=== PATIENT | male | born 1970 | race Caucasian/White ===

== ENCOUNTER 2017-11-30 02:32 | Inpatient (IN) | payer SELFPAY ==
[2017-11-30] VITALS (16 sets, daily range): BP systolic 109–143; BP diastolic 57–76; PULSE 79–97; RESP 20–28; TEMP 98.6–99.7; O2SAT 95–100
[~2017-11-30] VITALS: Ht 172.7 cm; Wt 73.7 kg
[~2017-11-30 02:32] MED LIST: CEPH500C3 PO; CIPR500T2 PO; DOXY100T PO; PROM6.257 PO
[2017-11-30] MEDS: SODIUM CHLOR 0.9% 1000 ML INJ 1,000 ML IV SCH ×2 (03:34→15:29)
--- NOTE | 2017-11-30 03:42 | HHI.HP ---
HPI Service Critical Care Medicine Primary Care Physician Unknown Admission Diagnosis Acute respiratory failure Right intraparenchymal/intraventricular hemorrhage Diagnosis: (1) Acute respiratory failure Diagnosis: Principal (2) Intraparenchymal hemorrhage of brain Diagnosis: Principal (3) Hypertensive emergency Diagnosis: Principal (4) Amphetamine abuse Diagnosis: Principal (5) Leukocytosis Diagnosis: Secondary Chief Complaint: Patient transferred from [facility] and this morning with right thalamic/midbrain and vicky intraparenchymal hemorrhage with intraventricular extension Travel History International Travel<30 Days: No Contact w/Intl Traveler <30 Da: No Traveled to Known Affected Are: No Sepsis Criteria SIRS Criteria (2 or more): WBC > 66529, < 4000 or > 10% bands History of Present Illness This is a 47-year-old male. Date of admission 11/30/2017. Past medical history includes hypertension methamphetamine use. Patient was in his normal himself when he took a shower today was found by his girlfriend unresponsive. He has been using methamphetamine for the past 6 months. Unknown reasons. Urine tox screen positive. Patient presented to [facility] in [place] as a stroke alert. Due to altered mental status patient was intubated using 20 g etomidate 100 mg succinylcholine. Received [address] brain revealed intra-pedicle hemorrhage 4.7 x 2.2 cm in the right thalamus, midbrain and vicky with intraventricular extension to the third, fourth and lateral ventricles. Patient received mannitol at the facility. Blood pressure was elevated and was treated with labetalol and propofol drip. Neurosurgery was contacted our facility wished for us to accept consultation. CT brain currently pending. 3% saline, mannitol and levetiracetam involvement provided at this facility. Neurological patient's pupils are 9 mm left 8 mm on the right sluggish. Patient extends right upper extremity, flexes left upper extremity, upward toes/ withdraws bilateral lower extremities. Positive gag and cough. Positive corneal reflex. Review of Systems ROS Limitations: Intubated Past Family Social History Allergies: Coded Allergies: No Known Allergies (Unverified Allergy, Unknown, 11/30/17) Past Medical History Methamphetamine use Hypertension Past Surgical History Appendectomy Reported Medications Unknown Active Ordered Medications Reviewed in EMR Family History Unknown Social History Social alcohol. Unknown tobacco. Positive for amphetamine use. Physical Exam Vital Signs Vital Signs Date Time Temp Pulse Resp B/P (MAP) Pulse Ox O2 Delivery O2 Flow Rate FiO2 3/6/18 02:50 100 100 Physical Exam GENERAL: 47-year-old male orotracheally intubated SKIN: Warm and dry. No rash HEAD: Atraumatic. Normocephalic. EYES: Pupils 9 mm, right pupil 8 mm. Sluggish. No scleral icterus. No injection or drainage. ENT: No nasal bleeding or discharge. Mucous membranes pink and moist. NECK: Trachea midline. No JVD. CARDIOVASCULAR: Regular rate and rhythm. S1, S2. No S4. No murmur RESPIRATORY: No accessory muscle use. Clear to auscultation. Breath sounds equal bilaterally. GASTROINTESTINAL: Abdomen soft, non-tender, nondistended hypoactive bowel sounds are appreciated MUSCULOSKELETAL: Extremities without significant peripheral edema. No obvious deformities. NEUROLOGICAL: Positive gag and cough. Positive corneal reflex. Flexes left upper extremity. Extends right upper extremity. Upward toes/withdraws bilateral lower extremities. Imaging CT brain pending Septic Shock Reassessment Septic shock perfusion: reassessment completed Caprini VTE Risk Assessment Caprini VTE Risk Assessment: Mod/High Risk (score >= 2) VTE Pharm Contraindication: Active bleeding Caprini Risk Assessment Model Point Value = 1 Point Value = 2 Point Value = 3 Point Value = 5 Age 41-60 Minor surgery BMI > 25 kg/m2 Swollen legs Varicose veins or History of unexplained or recurrent spontaneous Oral contraceptives or hormone replacement Sepsis (< 1 month) Serious lung disease, including pneumonia (< 1 month) Abnormal pulmonary function Acute myocardial infarction Congestive heart failure (< 1 month) History of inflammatory bowel disease Medical patient at bed rest Age 61-74 Arthroscopic surgery Major open surgery (> 45 min) Laparoscopic surgery (> 45 min) Malignancy Confined to bed (> 72 hours) Immobilizing plaster cast Central venous access Age >= 75 History of VTE Family history of VTE Factor V Leiden Prothrombin [id number] Lupus anticoagulant Anticardiolipin antibodies Elevated serum homocysteine Heparin-induced thrombocytopenia Other congenital or acquired thrombophilia Stroke (< 1 month) Elective arthroplasty Hip, pelvis, or leg fracture Acute spinal cord injury (< 1 month) Prophylaxis Regimen Total Risk Factor Score Risk Level Prophylaxis Regimen 0-1 Low Early ambulation 2 Moderate Order ONE of the following: *Sequential Compression Device (SCD) *Heparin 5000 units SQ BID 3-4 Higher Order ONE of the following medications: *Heparin 5000 units SQ TID *Enoxaparin/Lovenox 40 mg SQ daily (WT < 150 kg, CrCl > 30 mL/min) *Enoxaparin/Lovenox 30 mg SQ daily (WT < 150 kg, CrCl > 10-29 mL/min) *Enoxaparin/Lovenox 30 mg SQ BID (WT < 150 kg, CrCl > 30 mL/min) AND/OR *Sequential Compression Device (SCD) 5 or more Highest Order ONE of the following medications: *Heparin 5000 units SQ TID (Preferred with Epidurals) *Enoxaparin/Lovenox 40 mg SQ daily (WT < 150 kg, CrCl > 30 mL/min) *Enoxaparin/Lovenox 30 mg SQ daily (WT < 150 kg, CrCl > 10-29 mL/min) *Enoxaparin/Lovenox 30 mg SQ BID (WT < 150 kg, CrCl > 30 mL/min) AND *Sequential Compression Device (SCD) Assessment and Plan Assessment and Plan Neuro/Psych: Right thalamic/midbrain /vicky intraparenchymal hemorrhage 4.7 x 3.3 cm with intraventricular extension to the third, fourth and lateral ventricles. Methamphetamine use Propofol/fentanyl drips for sedation/analgesia while intubated Goal of RA SS -[address] brain at [facility] pneumocephaly which revealed right thalamic hematoma/intraparenchymal hemorrhage 4.7 x 3 cm involving the midbrain and vicky with intraventricular extension. Received 20 mg labetalol and started on nicardipine drip Neurosurgery/Dr. Pathak accepted and asked for size roller operator to admit CT brain without contrast 11/30 pending Currently on 3% saline at 20 cc an hour. Goal 150-155 Mannitol 12.5 g IV every 8 hours. Goal osm ~310 EEG ordered Levetiracetam 500 mg IV twice daily seizure prophylaxis Seizure precautions Repeat UDS ordered. Positive for amphetamines at [facility] CV: Hypertensive emergency Currently on as needed labetalol/nicardipine drip to maintain systolic blood pressure less than 140 EKG and cardiac markers currently pending 2D echocardiogram ordered Resp: Acute respiratory failure [facility] 16/500/10/01/50 Ventilator bundle Albuterol/ipratropium aerosols every 6 hours with albuterol aerosols every 2 hours. Dyspnea Spontaneous breathing trials daily Follow-up ABG/chest x-ray End-tidal CO2 between 35 and 40 GI: Elevated transaminases NGT to LIWS Pantoprazole for GI prophylaxis Docusate sodium/senna 1 tablet twice daily for bowel regimen : Stuart catheter for accurate I's and O's in a critically ill patient Endo: Sliding scale insulin Accu-Cheks to maintain euglycemia Renal: Creatinine currently within normal limits Monitor urine output Accurate I's and O's Heme: CBC and coags was normal at [facility]. Recheck at this facility ID: Monitor for infection MSK: PT evaluate and treat FEN: Replace electrolytes as clinically indicated Access -Utilize left IJ CVL day #1 placed 3/6 Prophylaxis -GI pantoprazole -DVT SCD/holding pharmacological prophylaxis in light of acute intraparenchymal hemorrhage Critical Care: The total critical care time was 35 minutes. Time to perform other separately billable procedures was not included in the critical care time. Code Status Full code Discussed Condition With Patient. Care plan discussed and all questions answered. Problem Qualifiers (1) Acute respiratory failure: Qualified Codes: J96.00 - Acute respiratory failure, unspecified whether with hypoxia or hypercapnia (2) Leukocytosis: Qualified Codes: D72.829 - Elevated white blood cell count, unspecified Nathan Lang MD Nov 30, 2017 03:42
--- NOTE | 2017-11-30 03:43 | PD.PROCEDR ---
Central Line Procedure REASON FOR PROCEDURE Central venous access PROCEDURE PERFORMED Central line placement: Left IJ CVL CONSENT Informed consent for procedure was obtained. The risks and benefits of the procedure were discussed to include but limited to bleeding, clot formation, infection, and even . ANESTHESIA Local injection of 1% Lidocaine DESCRIPTION OF THE PROCEDURE The patient was placed in supine, mild Trendelenburg position. The area was exposed and cleansed with ChloraPrep, times two. Large sterile drape was used to cover the patient, with the site exposed, under sterile conditions including cap, face mask, sterile gown, and sterile gloves. On single attempt, the introducer needle was inserted with negative pressure in syringe and venous flash was obtained. The guide wire was then advanced without any restriction and the needle was removed. The dilator was used without any complications. Using Seldinger technique the antibiotic coated triple lumen catheter was advanced over the guide wire to a depth of 20 centimeters. The guide wire was removed. All ports were aspirated with dark venous blood return and flushed easily with sterile saline. All ports were capped. Antibiotic disc was placed around central line at puncture site. The central line was secured to the skin with two interrupted 2.0 silk sutures. The area was bandaged with sterile see- through central line bandage. RADIOLOGICAL DATA Ultrasound guidance was used to locate left internal jugular vein. Doppler/ color flow was used to confirm venous flow. COMPLICATIONS: No apparent complications ESTIMATED BLOOD LOSS: Less than 1 cc. Nathan Lang MD Nov 30, 2017 03:43
[2017-11-30] MEDS ORDERED: MAGNESIUM HYDROXIDE SUSP 30 ML CUP PO PRN (03:45)
[2017-11-30] MEDS ORDERED: PROPOFOL 1000 MG/100 ML INJ 100 ML IV PRN (03:45)
[2017-11-30] MEDS ORDERED: SODIUM CHLORIDE 0.9% FLUSH 10 ML FLUSH IV FLUSH PRN ×2 (03:45)
[2017-11-30] MEDS ORDERED: levETIRAcetam INJ 500 MG in SODIUM CHLORIDE 0.9% INJ 100 ML IV ONE (03:45)
[2017-11-30] MEDS ORDERED: GLUCAGON 1 MG/ML VIAL OTHER PRN (03:45)
[2017-11-30] MEDS ORDERED: BISACODYL 10 MG SUPP RECTAL PRN (03:45)
[2017-11-30] MEDS ORDERED: SENNOSIDES 8.6 MG TAB PO PRN (03:45)
[2017-11-30] MEDS ORDERED: DEXTROSE 50% IN WATER 50 ML VIAL(D50) IV PUSH PRN (03:45)
[2017-11-30] MEDS ORDERED: RESP: ALBUTEROL 2.5 MG/3 ML NEB (PRN) INH (03:45)
[2017-11-30] MEDS ORDERED: ONDANSETRON HCL 4 MG/2 ML VIAL IV PUSH PRN (03:45)
[2017-11-30] MEDS ORDERED: MISCELLANEOUS NURSING INFORMATION XX SCH (03:45)
[2017-11-30] MEDS ORDERED: LACTULOSE SYRUP 20 GM/30 ML CUP PO PRN (03:45)
[2017-11-30] MEDS ORDERED: CHLORHEXIDINE GLUCONATE 2 % 1 PACK (2 CLOTHS) TOP PRN (03:45)
[2017-11-30] MEDS ORDERED: fentaNYL DRIP 250 ML IV PRN (03:45)
[2017-11-30] MEDS: MANNITOL 12.5 GM/50 ML VIAL IV SCH ×3 (03:45→19:45)
[2017-11-30] MEDS ORDERED: LABETALOL HCL 100 MG/20 ML VIAL IV PUSH PRN (04:00)
[2017-11-30] MEDS: CHLORHEXIDINE GLUCONATE 2 % 1 PACK (2 CLOTHS) TOP SCH (04:00)
[2017-11-30] MEDS ORDERED: CLEVIDIPINE INJ 50 ML IV PRN (04:00)
[2017-11-30] MEDS ORDERED: niCARdipine INJ 25 MG in SODIUM CHLOR 0.9% 250 ML INJ 240 ML IV PRN (04:00)
--- NOTE | 2017-11-30 04:40 | RADRPT ---
EXAM DATE/TIME: 11/30/2017 04:14 [facility] COMPARISON: No previous studies available for comparison. INDICATIONS : Hemorrhage after drug use. RADIATION DOSE: 66.36 CTDIvol (mGy) MEDICAL HISTORY : Non-responsive. SURGICAL HISTORY : Non-responsive. ENCOUNTER: Initial ACUITY: 1 day PAIN SCALE: Non-responsive LOCATION: cranial TECHNIQUE: Multiple contiguous axial images were obtained of the head. Using automated exposure control and adj ustment of the mA and/or kV according to patient size, radiation dose was kept as low as reasonably a chievable to obtain optimal diagnostic quality images. DICOM format image data is available electro nically for review and comparison. FINDINGS: There is acute hemorrhage in the right basal ganglia measuring approximately 2.9 x 2.8 cm. There is s urrounding vasogenic edema and mass effect. The acute blood products extend into the lateral ventricl es bilaterally. There is also acute hemorrhage within the brainstem in the region of the vicky and mid brain. Acute blood products also extend into the fourth ventricle. The ventricles are mildly enlarged . There is approximately 4 mm of [id number] midline shift. The perimesencephalic cisterns are also effaced. The visualized sinuses are clear. No skull fracture is identified. CONCLUSION: There are acute blood products within the right basal ganglia and brainstem with extension of the blo od products into the lateral ventricles and fourth ventricle. These findings result in ventriculomega ly with 4 mm of [id number] midline shift. Isiah Andre MD on November 30, 2017 at 4:34 Board Certified Radiologist. This report was verified electronically.
[2017-11-30] MEDS ORDERED: POTASSIUM CHLORIDE 25 MEQ EFFERVESCENT TAB PO PRN (04:45)
[2017-11-30] MEDS ORDERED: MAGNESIUM OXIDE 400 MG TAB PO PRN (04:45)
[2017-11-30] MEDS ORDERED: POTASSIUM PHOSPHATE INJ 30 MMOL in SODIUM CHLOR 0.9% 250 ML INJ 250 ML IV PRN (04:45)
[2017-11-30] MEDS ORDERED: POTASSIUM CHLOR 20 MEQ PREMIX 100 ML IV PRN ×2 (04:45)
[2017-11-30] MEDS ORDERED: MAGNESIUM SULFATE INJ 4 GM in SODIUM CHLORIDE 0.9% INJ 92 ML IV PRN (04:45)
[2017-11-30] MEDS ORDERED: POTASSIUM CHLOR 40 MEQ PREMIX 100 ML IV PRN ×2 (04:45)
[2017-11-30] MEDS ORDERED: POTASSIUM PHOSPHATE MONOBASIC 500 MG TAB PO PRN (04:45)
[2017-11-30] MEDS ORDERED: MAGNESIUM SULFATE INJ 2 GM in SODIUM CHLORIDE 0.9% INJ 96 ML IV PRN (04:45)
[2017-11-30] MEDS ORDERED: SODIUM PHOSPHATE INJ 30 MMOL in SODIUM CHLOR 0.9% 250 ML INJ 240 ML IV PRN (04:45)
[2017-11-30] MEDS ORDERED: POTASSIUM PHOSPHATE MONOBASIC 500 MG TAB PO/TUBE PRN (04:45)
--- NOTE | 2017-11-30 04:55 | RADRPT ---
EXAM DATE/TIME: 11/30/2017 03:43 [facility] COMPARISON: No previous studies available for comparison. INDICATIONS : Central line placement. MEDICAL HISTORY : Non-responsive. SURGICAL HISTORY : Non-responsive. ENCOUNTER: Initial ACUITY: 1 day PAIN SCORE: Non-responsive. LOCATION: Bilateral chest FINDINGS: Portable AP view of the chest demonstrates a normal-sized cardiac silhouette. Endotracheal tube is pr esent. Distal tip is not well-visualized but appears to be at least 2 cm away from the alessia. Nasoga stric tube courses beyond the GE junction. Left IJ central line distal tip is in the SVC. No effusion , consolidation, or pneumothorax is identified. The bones and soft tissues demonstrate no acute findi ng. CONCLUSION: Left IJ central line distal tip in the SVC. No pneumothorax is visualized. Isiah Andre MD on November 30, 2017 at 4:52 Board Certified Radiologist. This report was verified electronically.
[2017-11-30] MEDS: RESP: ALBUTEROL 2.5 MG/IPRATROPIUM 0.5 MG NEB (SCH) INH ×4 (04:57→20:23)
[2017-11-30] MEDS: 3% SALINE INJ 500 ML IV SCH (05:50)
[2017-11-30] MEDS: INSULIN NovoLIN REGULAR SUPPLEMENTAL SCALE SQ SCH ×3 (06:00→18:00)
[2017-11-30 06:05] LABS: AUTOMATED NEUTROPHIL # 11.2 TH/MM3 (1.8-7.7); BASOPHIL % 0.2 % (0.0-2.0); EOSINOPHIL % 0.1 % (0.0-4.0); HEMATOCRIT 44.1 % (39.0-51.0); HEMOGLOBIN 15.1 GM/DL (13.0-17.0); LYMPH % 9.1 % (9.0-44.0); LYMPHOCYTE # 1.2 TH/MM3 (1.0-4.8); MEAN CELL VOLUME 88.3 FL (80.0-100.0); MEAN CORPUSCULAR HEMOGLOBIN 30.3 PG (27.0-34.0); MEAN CORPUSCULAR HGB CONC 34.3 % (32.0-36.0); MEAN PLATELET VOLUME 9.4 FL (7.0-11.0); MONO % 4.8 % (0.0-8.0); MONOCYTE # 0.6 TH/MM3 (0-0.9); NEUT % 85.8 % (16.0-70.0); PLATELET COUNT 220 TH/MM3 (150-450); RED CELL DISTRIBUTION WIDTH 13.7 % (11.6-17.2)
[2017-11-30 06:06] LABS: INTERNATIONAL NORMALIZED RATIO 1.1 RATIO; PROTHROMBIN TIME - PATIENT 10.7 SEC (9.8-11.6)
[2017-11-30 06:08] LABS: ALBUMIN 4.1 GM/DL (3.4-5.0); AST (GOT) 26 U/L (15-37); BICARBONATE 32.3 MEQ/L (21.0-32.0); BLOOD UREA NITROGEN 22 MG/DL (7-18); CALCIUM 8.5 MG/DL (8.5-10.1); CHLORIDE 99 MEQ/L (98-107); CREATININE 1.82 MG/DL (0.60-1.30); GLOMERULAR FILTRATION RATE 40 ML/MIN (>89); GLUCOSE,RANDOM 173 MG/DL (74-106); MAGNESIUM 2.1 MG/DL (1.5-2.5); SODIUM (NA) 137 MEQ/L (136-145)
[2017-11-30 06:17] LABS: ALKALINE PHOSPHATASE 67 U/L (45-117); ALT (GPT) 19 U/L (12-78); PHOSPHORUS 1.7 MG/DL (2.5-4.9); TOTAL BILIRUBIN ADULT 0.8 MG/DL (0.2-1.0); TROPONIN I 0.03 NG/ML (0.02-0.05)
[2017-11-30 06:21] LABS: ACETAMINOPHEN LESS THAN 2.0 MCG/ML (10.0-30.0)
[2017-11-30] MEDS ORDERED: fentaNYL 2,500 MCG/NS 250 ML IV PRN (07:00)
[2017-11-30] MEDS: niCARdipine 25 MG/NS 250 ML Vial2Bag or IV room IV PRN ×4 (07:15→13:55)
[2017-11-30] MEDS: PROPOFOL 1000 MG/100 ML IV PRN ×3 (07:57→17:41)
[2017-11-30] MEDS: CHLORHEXIDINE 0.12% (ORAL KIT) 15 ML CUP MT SCH ×2 (08:00→20:00)
[2017-11-30] MEDS: levETIRAcetam INJ 500 MG in SODIUM CHLORIDE 0.9% INJ 100 ML IV SCH ×2 (09:00→21:51)
[2017-11-30] MEDS: SODIUM CHLORIDE 0.9% FLUSH 10 ML FLUSH IV FLUSH SCH ×3 (09:00→21:00)
[2017-11-30] MEDS: ARTIFICIAL TEARS OPTH SOLN 15 ML BTL EACH EYE SCH ×3 (09:00→18:00)
[2017-11-30] MEDS: DOCUSATE SODIUM 50 MG/SENNA 8.6 MG TAB PO SCH ×2 (09:00→21:52)
[2017-11-30] MEDS: PANTOPRAZOLE SODIUM 40 MG VIAL IV PUSH SCH (09:00)
[2017-11-30] MEDS: MULTIVITAMIN INJ 10 ML, THIAMINE INJ 100 MG, FOLIC ACID INJ 1 MG in SODIUM CHLORID 0.9%... IV SCH (09:00)
[2017-11-30 14:07] LABS: ALBUMIN 3.7 GM/DL (3.4-5.0); AST (GOT) 28 U/L (15-37); BICARBONATE 30.3 MEQ/L (21.0-32.0); BLOOD UREA NITROGEN 24 MG/DL (7-18); CALCIUM 8.3 MG/DL (8.5-10.1); CHLORIDE 101 MEQ/L (98-107); CREATININE 1.76 MG/DL (0.60-1.30); GLOMERULAR FILTRATION RATE 42 ML/MIN (>89); GLUCOSE,RANDOM 105 MG/DL (74-106); SODIUM (NA) 141 MEQ/L (136-145)
[2017-11-30 14:08] LABS: ALT (GPT) 17 U/L (12-78)
[2017-11-30 14:10] LABS: ALKALINE PHOSPHATASE 58 U/L (45-117); TOTAL BILIRUBIN ADULT 0.6 MG/DL (0.2-1.0); TOTAL PROTEIN 6.9 GM/DL (6.4-8.2)
--- NOTE | 2017-11-30 17:00 | MG ---
cc: Ronnie Monroe MD EEG#: [id number] Diprivan, fentanyl. Right basal ganglion branch stem hemorrhage. Unresponsive. Keppra, Protonix. Diffuse beta rhythms and alpha rhythms are noted which are synchronous and symmetric. I do not see any epileptiform or seizure activity. No major hemisphere asymmetry is noted. Some muscle artifact is seen over the left zoroastrianism leads. Photic stimulation is performed without significant posterior driving. IMPRESSION: Really a generally unremarkable electroencephalogram. I did not see any epileptiform or seizure activity. No major hemisphere asymmetry is noted. Ronnie Norris. MD Fer DJM/TI , 04:37 PM , 04:59 PM
--- NOTE | 2017-11-30 17:38 | ECHRPT ---
Indication: HEART FAILURE CONCLUSIONS The left ventricular systolic function is sslztooj-yh-pphixzy reduced with an estimated ejection fra ction in the range of 35-40%. Moderate concentric left ventricular hypertrophy. Doppler parameters are consistent with a pseudonormal left ventricular filling pattern with concomin ant abnormal relaxation and increased filling pressure (grade 2 diastolic dysfunction). Mild aortic valve regurgitation. There is trace tricuspid valve regurgitation. BP: 149 / 79 HR: 149 Rhythm: Sinus MEASUREMENTS (Male / Female) Normal Values Technical Quality:Fair 2D ECHO LV Diastolic Diameter PLAX 6.0 cm 4.2 - 5.9 / 3.9 - 5.3 cm LV Systolic Diameter PLAX 5.1 cm IVS Diastolic Thickness 1.5 cm 0.6 - 1.0 / 0.6 - 0.9 cm LVPW Diastolic Thickness 1.5 cm 0.6 - 1.0 / 0.6 - 0.9 cm LV Relative Wall Thickness 0.5 LVOT Diameter 2.1 cm Aortic Root Diameter 3.3 cm LA Systolic Diameter LX 2.2 cm 3.0 - 4.0 / 2.7 - 3.8 cm DOPPLER AV Peak Velocity 123.0 cm/s AV Peak Gradient 6.1 mmHg AV Mean Gradient 3.0 mmHg AV Velocity Time Integral 15.0 cm AI Peak Velocity 413.0 cm/s AI Peak Gradient 68.2 mmHg AI Pressure Half Time 645.0 ms LVOT Peak Velocity 102.0 cm/s LVOT Peak Gradient 4.2 mmHg LVOT Velocity Time Integral 13.2 cm AV Area Cont Eq vti 3.0 cm AV Area Cont Eq pk 2.9 cm Mitral E Point Velocity 52.3 cm/s Mitral A Point Velocity 48.9 cm/s Mitral E to A Ratio 1.1 LV E' Lateral Velocity 8.3 cm/s Mitral E to LV E' Lateral Ratio 6.3 LV E' Septal Velocity 4.8 cm/s Mitral E to LV E' Septal Ratio 10.9 TR Peak Velocity 248.0 cm/s TR Peak Gradient 24.6 mmHg Right Atrial Pressure 10.0 mmHg Pulmonary Artery Systolic Pressu 34.6 mmHg Right Ventricular Systolic Press 34.6 mmHg PV Peak Velocity 95.5 cm/s PV Peak Gradient 3.6 mmHg FINDINGS LEFT VENTRICLE Mildly dilated left ventricle Moderate concentric left ventricular hypertrophy. The left ventricular systolic function is fkwivupj-pw-kelhozr reduced with an estimated ejection fra ction in the range of 35-40%. There is global left ventricular dysfunction. Doppler parameters are consistent with a pseudonormal left ventricular filling pattern with concomin ant abnormal relaxation and increased filling pressure (grade 2 diastolic dysfunction). RIGHT VENTRICLE Normal right ventricular size and systolic function. LEFT ATRIUM The left atrial size is mildly dilated. RIGHT ATRIUM The right atrial size is normal. ATRIAL SEPTUM Normal atrial septal thickness without atrial level shunting by limited color doppler interrogation. AORTA The aortic root and proximal ascending aorta are normal in size on limited imaging. MITRAL VALVE Structurally normal mitral valve. No mitral valve stenosis or regurgitation. AORTIC VALVE Grossly normal aortic valve Mild aortic valve regurgitation. No aortic valve stenosis. TRICUSPID VALVE Grossly normal There is trace tricuspid valve regurgitation. The estimated pulmonary arterial pressure is 35 mmHg. PULMONARY VALVE No pulmonary valve regurgitation or stenosis. VESSELS The inferior vena cava is normal in size. PERICARDIUM No pericardial effusion. Fabio Hopkins DO (Electronically Signed) Final Date:30 November 2017 17:37
--- NOTE | 2017-11-30 19:33 | HHI.HP ---
HPI Service Neurosurgery Primary Care Physician Unknown Chief Complaint: Intubated and sedated History of Present Illness 47-year-old male transferred from [facility] after presenting to the emergency room with altered mental status, hypertension. Initial CT scan head revealed severe [id number] intracranial hemorrhage with intraventricular extension. Initial CT scan head [facility] per report without significant overall hydrocephalus. No seizure activity reported. Patient intubated at the outlying facility prior to transport. Review of Systems Unable to obtain review of systems from the patient. According to patient's father, no recent medical complaints Past Family Social History Allergies: Coded Allergies: No Known Allergies (Unverified Allergy, Unknown, 11/30/17) Past Medical History History methamphetamine use for approximately 6 months. Hypertension Past Surgical History Appendectomy. Reported Medications Reported Meds & Active Scripts Active Phenergan/Codeine 6.25/10 Mg/5 Ml (Promethazine HCl/Codeine) Soln 10 Ml PO Q6HPRN FOR COUGH Doxycycline Hyclate 100 Mg Tab 1 Tab PO BID Cipro (Ciprofloxacin) 500 Mg Tab 1 Tab PO BID Reported Keflex (Cephalexin Monohydrate) 500 Mg Cap 500 Mg PO Q6 Family History No major family illnesses reported per father Social History Positive methamphetamine use. Occasional alcohol Physical Exam Vital Signs Vital Signs Date Time Temp Pulse Resp B/P (MAP) Pulse Ox O2 Delivery O2 Flow Rate FiO2 11/30/17 18:00 81 11/30/17 16:38 100 50 11/30/17 16:00 87 11/30/17 16:00 99.0 87 28 133/67 (89) 100 11/30/17 14:00 85 11/30/17 13:55 84 139/75 11/30/17 12:00 98.6 79 28 143/76 (98) 100 11/30/17 12:00 79 11/30/17 10:00 79 11/30/17 08:00 99.7 89 28 109/57 (74) 100 11/30/17 08:00 100 80 11/30/17 08:00 84 11/30/17 08:00 100 80 11/30/17 07:15 85 132/68 11/30/17 07:00 100 Mechanical Ventilator 70 11/30/17 07:00 84 11/30/17 06:47 98.7 97 20 134/67 (89) 100 11/30/17 06:10 100 80 11/30/17 05:17 100 100 11/30/17 05:03 100 100 11/30/17 04:00 100 100 11/30/17 02:50 100 100 Physical Exam GENERAL: This is a well-nourished, well-developed patient, intubated and sedated in the intensive care unit SKIN: No abrasions, contusion, rash noted. Skin warm and dry. HEAD: Atraumatic. Normocephalic. No temporal or scalp tenderness. EYES: Sclerae are clear and nonicteric ENT: No facial edema or ecchymosis. No periorbital edema. No CSF otorrhea or rhinorrhea. No palpable facial fracture or deformity. NECK: Trachea midline. No cervical spine tenderness. CARDIOVASCULAR: Regular rate and rhythm without murmurs, gallops, or rubs. RESPIRATORY: Clear to auscultation. Breath sounds equal bilaterally. No wheezes , rales, or rhonchi. GASTROINTESTINAL: Abdomen soft, nondistended. No hepato-splenomegaly, or palpable masses. No guarding. MUSCULOSKELETAL: Extremities without cyanosis, or edema. No joint edema noted. No calf tenderness. Dorsalis pedis pulses 2+ bilateral NEUROLOGICAL: Intubated and sedated No response to voice Does not follow commands No eye opening to voice or deep pain Pupils 7 mm nonreactive Absent corneal response Absent oculocephalic response Minimal reflex type response to deep pain in upper extremities and lower extremities without definite posturing. Kasper's response absent No ankle clonus Plantar responses absent Laboratory Laboratory Tests Test 11/30/17 04:41 11/30/17 04:44 11/30/17 04:47 11/30/17 05:20 Prothrombin Time 10.7 Prothromb Time International Ratio 1.1 Activated Partial Thromboplast Time 24.2 Fibrinogen 368 Random Cortisol 11.4 Salicylates Level LESS THAN 1.7 White Blood Count 13.0 Red Blood Count 5.00 Hemoglobin 15.1 Hematocrit 44.1 Mean Corpuscular Volume 88.3 Mean Corpuscular Hemoglobin 30.3 Mean Corpuscular Hemoglobin Concent 34.3 Red Cell Distribution Width 13.7 Platelet Count 220 Mean Platelet Volume 9.4 Neutrophils (%) (Auto) 85.8 Lymphocytes (%) (Auto) 9.1 Monocytes (%) (Auto) 4.8 Eosinophils (%) (Auto) 0.1 Basophils (%) (Auto) 0.2 Neutrophils # (Auto) 11.2 Lymphocytes # (Auto) 1.2 Monocytes # (Auto) 0.6 Eosinophils # (Auto) 0.0 Basophils # (Auto) 0.0 CBC Comment DIFF FINAL Differential Comment Blood Urea Nitrogen 22 Creatinine 1.82 Random Glucose 173 Total Protein 8.0 Albumin 4.1 Calcium Level 8.5 Phosphorus Level 1.7 Magnesium Level 2.1 Alkaline Phosphatase 67 Aspartate Amino Transf (AST/SGOT) 26 Alanine Aminotransferase (ALT/SGPT) 19 Total Bilirubin 0.8 Sodium Level 137 Potassium Level 3.2 Chloride Level 99 Carbon Dioxide Level 32.3 Anion Gap 6 Estimat Glomerular Filtration Rate 40 Serum Osmolality 301 Total Creatine Kinase 330 Creatine Kinase MB 4.4 Creatine Kinase MB % 1.3 Troponin I 0.03 Thyroid Stimulating Hormone 3rd Gen 0.723 Acetaminophen Level LESS THAN 2.0 Ethyl Alcohol Level LESS THAN 3 B-Hydroxybutyrate 0.09 Blood Gas Puncture Site RT RADIAL Blood Gas Patient Temperature 98.6 Blood Gas HCO3 32 Blood Gas Base Excess 7.9 Blood Gas Oxygen Saturation 98 Arterial Blood pH 7.49 Arterial Blood Partial Pressure CO2 42 Arterial Blood Partial Pressure O2 530 Arterial Blood Oxygen Content 22.0 Arterial Blood Carboxyhemoglobin 0.0 Arterial Blood Methemoglobin 0.9 Blood Gas Hemoglobin 15.0 Oxygen Delivery Device VENT Blood Gas Ventilator Setting SEE COMMENTS Blood Gas Inspired Oxygen 100 Test 11/30/17 06:11 11/30/17 12:00 Nasal Screen MRSA (PCR) MRSA NOT DETECTED Blood Urea Nitrogen 24 Creatinine 1.76 Random Glucose 105 Total Protein 6.9 Albumin 3.7 Calcium Level 8.3 Alkaline Phosphatase 58 Aspartate Amino Transf (AST/SGOT) 28 Alanine Aminotransferase (ALT/SGPT) 17 Total Bilirubin 0.6 Sodium Level 141 Potassium Level 3.2 Chloride Level 101 Carbon Dioxide Level 30.3 Anion Gap 10 Estimat Glomerular Filtration Rate 42 Serum Osmolality 304 Result Diagram: 11/30/17 0444 11/30/17 1200 Imaging 11/30/2017 CT scan head images reviewed and compared to prior images from [facility] Positive persistent severe brainstem-midbrain hemorrhage with extension to the right thalamus and intraventricular extension. Moderate progression of ventriculomegaly compared to prior study. Chest X-Ray 11/30/17 0334 Signed Impressions: Service Date/Time: Thursday, November 30, 2017 03:43 - CONCLUSION: Left IJ central line distal tip in the SVC. No pneumothorax is visualized. Isiah Andre MD Head CT 11/30/17 0000 Signed Impressions: Service Date/Time: Thursday, November 30, 2017 04:14 - CONCLUSION: There are acute blood products within the right basal ganglia and brainstem with extension of the blood products into the lateral ventricles and fourth ventricle. These findings result in ventriculomegaly with 4 mm of [id number] midline shift. MD Tino Gross VTE Risk Assessment Caprini VTE Risk Assessment: Mod/High Risk (score >= 2) VTE Pharm Contraindication: Active bleeding Caprini Risk Assessment Model Point Value = 1 Point Value = 2 Point Value = 3 Point Value = 5 Age 41-60 Minor surgery BMI > 25 kg/m2 Swollen legs Varicose veins or History of unexplained or recurrent spontaneous Oral contraceptives or hormone replacement Sepsis (< 1 month) Serious lung disease, including pneumonia (< 1 month) Abnormal pulmonary function Acute myocardial infarction Congestive heart failure (< 1 month) History of inflammatory bowel disease Medical patient at bed rest Age 61-74 Arthroscopic surgery Major open surgery (> 45 min) Laparoscopic surgery (> 45 min) Malignancy Confined to bed (> 72 hours) Immobilizing plaster cast Central venous access Age >= 75 History of VTE Family history of VTE Factor V Leiden Prothrombin [id number] Lupus anticoagulant Anticardiolipin antibodies Elevated serum homocysteine Heparin-induced thrombocytopenia Other congenital or acquired thrombophilia Stroke (< 1 month) Elective arthroplasty Hip, pelvis, or leg fracture Acute spinal cord injury (< 1 month) Prophylaxis Regimen Total Risk Factor Score Risk Level Prophylaxis Regimen 0-1 Low Early ambulation 2 Moderate Order ONE of the following: *Sequential Compression Device (SCD) *Heparin 5000 units SQ BID 3-4 Higher Order ONE of the following medications: *Heparin 5000 units SQ TID *Enoxaparin/Lovenox 40 mg SQ daily (WT < 150 kg, CrCl > 30 mL/min) *Enoxaparin/Lovenox 30 mg SQ daily (WT < 150 kg, CrCl > 10-29 mL/min) *Enoxaparin/Lovenox 30 mg SQ BID (WT < 150 kg, CrCl > 30 mL/min) AND/OR *Sequential Compression Device (SCD) 5 or more Highest Order ONE of the following medications: *Heparin 5000 units SQ TID (Preferred with Epidurals) *Enoxaparin/Lovenox 40 mg SQ daily (WT < 150 kg, CrCl > 30 mL/min) *Enoxaparin/Lovenox 30 mg SQ daily (WT < 150 kg, CrCl > 10-29 mL/min) *Enoxaparin/Lovenox 30 mg SQ BID (WT < 150 kg, CrCl > 30 mL/min) AND *Sequential Compression Device (SCD) Assessment and Plan Assessment and Plan Impression: 1. Severe brainstem-midbrain intracranial hemorrhage with extension to the third and fourth ventricle and hypothalamus. Follow-up CT scan with moderate progression of obstructive hydrocephalus. 2. History of methamphetamine use Recommendations: Findings were discussed with the patient's father on the telephone. Right frontal twist drill for ventriculostomy placement recommended. Telephone consent obtained Procedure performed and will be dictated separately. ICP 10-15 initially following ventriculostomy. Continue ventilatory support Nonchemical DVT prophylaxis Ulcer prophylaxis Maintain serum sodium 150-155 range with serum osmolality 10/30/2009 with as needed hypertonic saline and mannitol. Given the severity of the hemorrhage and the patient's presenting neurologic exam, initial prognosis appears very poor. Sheng Pathak MD Nov 30, 2017 19:33
--- NOTE | 2017-11-30 19:40 | PD.OP ---
Operative Report Date of Surgery: Nov 30, 2017 Preoperative Diagnosis: (1) Intraparenchymal hemorrhage of brain Brainstem, midbrain intracranial hemorrhage with right thalamic and intraventricular extension. Progressive obstructive hydrocephalus. Postoperative Diagnosis: (1) Intraparenchymal hemorrhage of brain Brainstem, midbrain intracranial hemorrhage with right thalamic and intraventricular extension. Progressive obstructive hydrocephalus. Procedure: Right frontal twist drill for ventriculostomy placement. Anesthesia: Intravenous sedation. 1% Xylocaine local anesthetic Surgeon: Sheng Pathak Director Life Sales(s): None Operation and Findings: The procedure was performed in the surgical intensive care unit. The procedure, risks, and possible complications were fully explained prior to the procedure and consent obtained and witnessed. Appropriate timeout procedure was performed with all personnel present and in agreement The patient was placed in supine position with the head and neck in neutral position and the head of the bed elevated approximately 20. The right frontal region was shaved with clippers and sterilely prepped and draped. One percent Xylocaine without epinephrine was used for local infiltration over the small incision site which was made approximately 9-10 cm above the right supraorbital rim, approximately 3-1/2 to 4 cm lateral to the midline, in the mid pupillary line just anterior to the coronal suture. The hand drill was used to make a single twist drill opening in the cranium and the dura was perforated with the trocar. The Codman Bactiseal ventriculostomy catheter was advanced to a depth of 6-7 cm intracranial in a single pass with good return of spinal fluid. Opening pressure was 12 centimeter water The catheter was tunneled to the posterior frontal region with a trocar and secured to the skin with 3-0 nylon suture which was also used to close the small incision. A sterile bactericidal dressing was applied The catheter was connected to the drainage reservoir, and there was good drainage of fluid. The patient's neurologic exam remained stable following the procedure No specimen was sent There was no significant bleeding Sheng Pathak MD Nov 30, 2017 19:40
[2017-12-01] VITALS (20 sets, daily range): BP systolic 106–148; BP diastolic 64–88; PULSE 75–97; RESP 22–28; TEMP 95–98.4; O2SAT 100
[2017-12-01] MEDS: DEXTROSE 5% IN WATE 1000ML INJ 1,000 ML IV SCH ×5 (00:15→22:15)
[2017-12-01] MEDS: RESP: ALBUTEROL 2.5 MG/IPRATROPIUM 0.5 MG NEB (SCH) INH ×4 (03:13→21:08)
[2017-12-01] MEDS: SODIUM CHLOR 0.9% 1000 ML INJ 1,000 ML IV SCH (03:24)
[2017-12-01] MEDS: CHLORHEXIDINE GLUCONATE 2 % 1 PACK (2 CLOTHS) TOP SCH (03:25)
[2017-12-01] MEDS: MANNITOL 12.5 GM/50 ML VIAL IV SCH ×2 (03:25→11:45)
[2017-12-01] MEDS: 3% SALINE INJ 500 ML IV SCH (03:26)
[2017-12-01] MEDS: PROPOFOL 1000 MG/100 ML IV PRN ×2 (03:29)
[2017-12-01] MEDS: niCARdipine 25 MG/NS 250 ML Vial2Bag or IV room IV PRN ×2 (03:31)
[2017-12-01 05:41] LABS: BASOPHIL # 0.1 TH/MM3 (0-0.2); BASOPHIL % 0.4 % (0.0-2.0); EOSINOPHIL # 0.1 TH/MM3 (0-0.4); EOSINOPHIL % 0.6 % (0.0-4.0); HEMATOCRIT 38.6 % (39.0-51.0); HEMOGLOBIN 12.9 GM/DL (13.0-17.0); LYMPHOCYTE # 1.1 TH/MM3 (1.0-4.8); MEAN CELL VOLUME 89.2 FL (80.0-100.0); MEAN CORPUSCULAR HEMOGLOBIN 29.7 PG (27.0-34.0); MEAN CORPUSCULAR HGB CONC 33.3 % (32.0-36.0); MEAN PLATELET VOLUME 8.6 FL (7.0-11.0); MONO % 7.7 % (0.0-8.0); NEUT % 83.3 % (16.0-70.0); PLATELET COUNT 183 TH/MM3 (150-450); RED BLOOD COUNT 4.32 MIL/MM3 (4.50-5.90); RED CELL DISTRIBUTION WIDTH 14.5 % (11.6-17.2); WHITE BLOOD COUNT 13.2 TH/MM3 (4.0-11.0)
[2017-12-01] MEDS: INSULIN NovoLIN REGULAR SUPPLEMENTAL SCALE SQ SCH ×4 (06:00→18:00)
[2017-12-01 06:11] LABS: INTERNATIONAL NORMALIZED RATIO 1.1 RATIO
[2017-12-01 06:18] LABS: ALBUMIN 3.1 GM/DL (3.4-5.0); ALT (GPT) 14 U/L (12-78); AST (GOT) 22 U/L (15-37); BICARBONATE 25.4 MEQ/L (21.0-32.0); BLOOD UREA NITROGEN 24 MG/DL (7-18); CHLORIDE 112 MEQ/L (98-107); CREATININE 1.94 MG/DL (0.60-1.30); GLOMERULAR FILTRATION RATE 37 ML/MIN (>89); GLUCOSE,RANDOM 140 MG/DL (74-106); MAGNESIUM 2.3 MG/DL (1.5-2.5); PHOSPHORUS 1.7 MG/DL (2.5-4.9); SODIUM (NA) 146 MEQ/L (136-145)
[2017-12-01 06:23] LABS: ALKALINE PHOSPHATASE 57 U/L (45-117); TOTAL BILIRUBIN ADULT 0.8 MG/DL (0.2-1.0); TOTAL PROTEIN 6.5 GM/DL (6.4-8.2)
--- NOTE | 2017-12-01 06:30 | RADRPT ---
EXAM DATE/TIME: 12/01/2017 04:32 [facility] COMPARISON: CHEST SINGLE AP, November 30, 2017, 3:43. INDICATIONS : Shortness of breath. MEDICAL HISTORY : Unobtainable. SURGICAL HISTORY : Unobtainable ENCOUNTER: Subsequent ACUITY: 2 days PAIN SCORE: Non-responsive. LOCATION: Bilateral chest FINDINGS: Portable AP view of the chest demonstrates a normal-sized cardiac silhouette. ETT, left IJ line, and nasogastric tube remain present. Multiple EKG lines overlie the patient. No pleural effusion, airspac e consolidation, or pneumothorax is identified. Bones and soft tissues demonstrate no acute finding. CONCLUSION: Stable chest x-ray without an acute cardiopulmonary abnormality identified. Isiah Andre MD on December 01, 2017 at 6:27 Board Certified Radiologist. This report was verified electronically.
[2017-12-01] MEDS ORDERED: NOREPINEPHRINE-DEXTROSE DRIP 250 ML IV ONE (07:13)
--- NOTE | 2017-12-01 07:34 | EKG ---
Date Performed: 11/30/2017 Time Performed: 07:29:20 PTAGE: 47 years EKG: Sinus rhythm POSSIBLE LEFT ATRIAL ENLARGEMENT LEFT VENTRICULAR HYPERTROPHY AND ST-T CHANGE CANNOT EXCLUDE ISCHEMI A ABNORMAL ECG NO PREVIOUS TRACING DOCTOR: Robert Osei Interpretating Date/Time 12/01/2017 07:34:06
[2017-12-01] MEDS ORDERED: TERBUTALINE INJ 1 MG/ML AMP SQ PRN (08:15)
[2017-12-01] MEDS ORDERED: NOREPINEPHRINE INJ 4 MG in SODIUM CHLOR 0.9% 250 ML INJ 246 ML IV PRN (08:15)
[2017-12-01] MEDS: CHLORHEXIDINE 0.12% (ORAL KIT) 15 ML CUP MT SCH ×2 (08:48→20:45)
[2017-12-01] MEDS: MULTIVITAMIN INJ 10 ML, THIAMINE INJ 100 MG, FOLIC ACID INJ 1 MG in SODIUM CHLORID 0.9%... IV SCH (08:52)
[2017-12-01] MEDS: SODIUM CHLORIDE 0.9% FLUSH 10 ML FLUSH IV FLUSH SCH ×3 (08:52→21:00)
[2017-12-01] MEDS: ARTIFICIAL TEARS OPTH SOLN 15 ML BTL EACH EYE SCH ×3 (08:52→18:00)
[2017-12-01] MEDS: levETIRAcetam INJ 500 MG in SODIUM CHLORIDE 0.9% INJ 100 ML IV SCH ×2 (08:52→21:08)
[2017-12-01] MEDS: DOCUSATE SODIUM 50 MG/SENNA 8.6 MG TAB PO SCH ×2 (08:53→21:00)
[2017-12-01] MEDS: PANTOPRAZOLE SODIUM 40 MG VIAL IV PUSH SCH (08:53)
--- NOTE | 2017-12-01 09:27 | HHI.CCPN ---
Subjective Remarks/Hospital Course This is a 47-year-old male. Date of admission 11/30/2017. Past medical history includes hypertension methamphetamine use. Patient was in his normal himself when he took a shower today was found by his girlfriend unresponsive. He has been using methamphetamine for the past 6 months. Unknown reasons. Urine tox screen positive. Patient presented to [facility] in [place] as a stroke alert. Due to altered mental status patient was intubated using 20 g etomidate 100 mg succinylcholine. Received [address] brain revealed intra-pedicle hemorrhage 4.7 x 2.2 cm in the right thalamus, midbrain and vicky with intraventricular extension to the third, fourth and lateral ventricles. Patient received mannitol at the facility. Blood pressure was elevated and was treated with labetalol and propofol drip. Neurosurgery was contacted our facility wished for us to accept consultation. CT brain currently pending. 3% saline, mannitol and levetiracetam involvement provided at this facility. Neurological patient's pupils are 9 mm left 8 mm on the right sluggish. Patient extends right upper extremity, flexes left upper extremity, upward toes/withdraws bilateral lower extremities. Positive gag and cough. Positive corneal /: Unresponsive, pupils fixed. Alkalosis, will correct and assess respiratory drive. ICP elevated. Patient has developed DI, will start vasopressin and prn desmopressin. Objective Vital Signs Date Time Temp Pulse Resp B/P (MAP) Pulse Ox O2 Delivery O2 Flow Rate FiO2 12/01/17 07:54 100 40 12/01/17 06:20 97.8 76 28 148/68 (94) 12/01/17 03:39 Mechanical Ventilator Intake and Output 12/01/17 12/01/17 12/02/17 08:00 16:00 00:00 Intake Total 250 ml Output Total 945 ml Balance -695 ml Result Diagram: 12/01/1725 12/01/[address] brain pending Objective Remarks GENERAL: 47-year-old male, unresponsive SKIN: Warm and dry. No rash HEAD: Atraumatic. Normocephalic. EYES: Pupils 4 mm right, 3 mm left pupil 8 mm. Do not react. No scleral icterus. No injection or drainage. ENT: No nasal bleeding or discharge. Mucous membranes pink and moist. NECK: Trachea midline. Orally intubated. CARDIOVASCULAR: Regular rate and rhythm. S1, S2. No JVD. RESPIRATORY: No accessory muscle use. Clear to auscultation. Breath sounds equal bilaterally. GASTROINTESTINAL: Abdomen soft, non-tender, nondistended, active bowel sounds are appreciated. No guarding. MUSCULOSKELETAL: Extremities without significant peripheral edema. No obvious deformities. Well perfused. NEUROLOGICAL: Absent gag and cough. Extends right upper extremity to stimulation. Upward toes/withdraws bilateral. A/P Assessment and Plan Neuro/Psych: Right thalamic/midbrain /vicky intraparenchymal hemorrhage 4.7 x 3.3 cm with intraventricular extension to the third, fourth and lateral ventricles. Methamphetamine use Propofol/fentanyl drips for sedation/analgesia while intubated Goal of RA SS -[address] brain at [facility] which revealed right thalamic hematoma/ intraparenchymal hemorrhage 4.7 x 3 cm involving the midbrain and vicky with intraventricular extension. Received 20 mg labetalol and started on nicardipine drip Neurosurgery/Dr. Pathak accepted and asked for application penetration tester to admit CT brain without contrast 11/30 pending Currently on 3% saline at 20 cc an hour. Goal 150-155 Mannitol 12.5 g IV every 8 hours. Goal osm ~310 EEG ordered Levetiracetam 500 mg IV twice daily seizure prophylaxis Seizure precautions Repeat UDS ordered. Positive for amphetamines at [facility] CV: Hypertensive emergency Currently on as needed labetalol/nicardipine drip to maintain systolic blood pressure less than 140 EKG and cardiac markers currently pending 2D echocardiogram ordered Resp: Acute respiratory failure [facility] 16/500/1/5/50 Ventilator bundle Albuterol/ipratropium aerosols every 6 hours with albuterol aerosols every 2 hours. Dyspnea Spontaneous breathing trials daily Follow-up ABG/chest x-ray End-tidal CO2 between 30 and 35 GI: Elevated transaminases NGT to LIWS Pantoprazole for GI prophylaxis Docusate sodium/senna 1 tablet twice daily for bowel regimen : Stuart catheter for accurate I's and O's in a critically ill patient Endo: Sliding scale insulin Accu-Cheks to maintain euglycemia Renal: Creatinine currently elevated. Monitor urine output Accurate I's and O's Diamox 500 mg iv X 1 for alkalosis and apnea test Heme: CBC and coags was normal at [facility]. ID: Monitor for infection MSK: PT evaluate and treat FEN: Replace electrolytes as clinically indicated Access -Utilize left IJ CVL day #2 placed 3/6 Prophylaxis -GI pantoprazole -DVT SCD/holding pharmacological prophylaxis in light of acute intraparenchymal hemorrhage Overall impression: Large basal ganglia bleed and critically ill with diabetes insipidus and approaching brain . I'll correct electrolytes and perform apnea test. Critical care 40 mins aside from procedures Adolfo Salcedo MD Dec 01, 2017 09:27
[2017-12-01] MEDS: POTASSIUM CHLOR 40 MEQ PREMIX 100 ML IV SCH ×2 (09:51→12:15)
--- NOTE | 2017-12-01 10:57 | HHI.NSPN ---
(Brennan Messina) History Chief Complaint: Unable to obtain due to patient's clinical condition. (Brennan Messina) Interval History 11/30: 47-year-old male transferred from [facility] after presenting to the emergency room with altered mental status, hypertension. Initial CT scan head revealed severe [id number]-[id number] intracranial hemorrhage with intraventricular extension. Initial CT scan head [facility] per report without significant overall hydrocephalus. No seizure activity reported. Patient intubated at the [facility] prior to transport. He was admitted to the ISC unit and subsequently had a ventriculostomy placed. 12/01: The patient is comatose and nonresponsive. His sedation has been off for approximately three hours when seen. He remains intubated and mechanically ventilated. (Brennan Messina) System Review Comments Unable to obtain due to patient's clinical condition. (Brennan Messina) Exam Results 11/29/17 11/29/17 11/30/17 11/30/17 12/01/17 12/01/17 06:00 18:00 06:00 18:00 06:00 18:00 Intake Total 105 ml 505 ml 250 ml Output Total 2348 ml 945 ml Balance 105 ml -1843 ml 250 ml -945 ml Intake IV Total 105 ml 505 ml 250 ml Output Urine Total 1350 ml 800 ml Gastric Drainage Total 900 ml 75 ml Drainage Total 98 ml 70 ml Vital Signs Date Time Temp Pulse Resp B/P (MAP) Pulse Ox O2 Delivery O2 Flow Rate FiO2 12/01/17 07:54 100 40 12/01/17 07:00 100 Mechanical Ventilator 40 12/01/17 06:20 30 12/01/17 06:20 97.8 76 28 148/68 (94) 100 12/01/17 06:17 78 12/01/17 03:50 30 12/01/17 03:48 98.0 87 28 131/65 (87) 100 12/01/17 03:41 75 12/01/17 03:39 100 Mechanical Ventilator 40 12/01/17 03:31 76 132/65 3/7/18 03:14 100 40 11/30/17 23:31 100 50 11/30/17 20:23 95 50 11/30/17 18:00 81 11/30/17 16:38 100 50 11/30/17 16:00 87 11/30/17 16:00 99.0 87 28 133/67 (89) 100 11/30/17 14:00 85 11/30/17 13:55 84 139/75 11/30/17 12:00 98.6 79 28 143/76 (98) 100 11/30/17 12:00 79 11/30/17 10:00 79 11/30/17 08:00 99.7 89 28 109/57 (74) 100 11/30/17 08:00 100 80 11/30/17 08:00 84 11/30/17 08:00 100 80 11/30/17 07:15 85 132/68 11/30/17 07:00 100 Mechanical Ventilator 70 11/30/17 07:00 84 11/30/17 06:47 98.7 97 20 134/67 (89) 100 11/30/17 06:10 100 80 11/30/17 05:17 100 100 11/30/17 05:03 100 100 11/30/17 04:00 100 100 11/30/17 02:50 100 100 (Brennan Messina) Physical Examination GENERAL: Comatose, nonresponsive to any stimulation, off sedation for approximately 3 hrs, intubated & mechanically ventilated. HEENT: Normocephalic, atraumatic. Pupils 6 mm fixed bilaterally. No evident otorrhea or rhinorrhea. Orally intubated. OGT. MUSCULOSKELETAL: No evident clubbing or deformity. NEUROLOGICAL: Comatose, no sedation approximately 3 hrs. No response to voice. Does not follow commands. No eye opening. Pupils 6 mm fixed bilaterally. No corneal reflex. No cough reflex. Absent oculocephalic response. No response to local or central noxious stimulation. Ventriculostomy to 5 cm H2O pressure w/blood-tinged CSF drainage. (Brennan Messina) Lab, Micro, Other Results Recent Impressions Chest X-Ray 12/01/17 0000 Signed Impressions: Service Date/Time: Friday, December 01, 2017 04:32 - CONCLUSION: Stable chest x-ray without an acute cardiopulmonary abnormality identified. Isiah Andre MD Chest X-Ray 11/30/17 0334 Signed Impressions: Service Date/Time: Thursday, November 30, 2017 03:43 - CONCLUSION: Left IJ central line distal tip in the SVC. No pneumothorax is visualized. Isiah Andre MD Head CT 11/30/17 0000 Signed Impressions: Service Date/Time: Thursday, November 30, 2017 04:14 - CONCLUSION: There are acute blood products within the right basal ganglia and brainstem with extension of the blood products into the lateral ventricles and fourth ventricle. These findings result in ventriculomegaly with 4 mm of [id number] midline shift. Isiah Andre MD Laboratory Tests Test 11/30/17 04:41 11/30/17 04:44 11/30/17 04:47 11/30/17 05:20 Prothrombin Time 10.7 SEC Prothromb Time International Ratio 1.1 RATIO Activated Partial Thromboplast Time 24.2 SEC Fibrinogen 368 mg/dL Random Cortisol 11.4 MCG/DL Salicylates Level LESS THAN 1.7 MG/DL White Blood Count 13.0 TH/MM3 Red Blood Count 5.00 MIL/MM3 Hemoglobin 15.1 GM/DL Hematocrit 44.1 % Mean Corpuscular Volume 88.3 FL Mean Corpuscular Hemoglobin 30.3 PG Mean Corpuscular Hemoglobin Concent 34.3 % Red Cell Distribution Width 13.7 % Platelet Count 220 TH/MM3 Mean Platelet Volume 9.4 FL Neutrophils (%) (Auto) 85.8 % Lymphocytes (%) (Auto) 9.1 % Monocytes (%) (Auto) 4.8 % Eosinophils (%) (Auto) 0.1 % Basophils (%) (Auto) 0.2 % Neutrophils # (Auto) 11.2 TH/MM3 Lymphocytes # (Auto) 1.2 TH/MM3 Monocytes # (Auto) 0.6 TH/MM3 Eosinophils # (Auto) 0.0 TH/MM3 Basophils # (Auto) 0.0 TH/MM3 CBC Comment DIFF FINAL Differential Comment Blood Urea Nitrogen 22 MG/DL Creatinine 1.82 MG/DL Random Glucose 173 MG/DL Total Protein 8.0 GM/DL Albumin 4.1 GM/DL Calcium Level 8.5 MG/DL Phosphorus Level 1.7 MG/DL Magnesium Level 2.1 MG/DL Alkaline Phosphatase 67 U/L Aspartate Amino Transf (AST/SGOT) 26 U/L Alanine Aminotransferase (ALT/SGPT) 19 U/L Total Bilirubin 0.8 MG/DL Sodium Level 137 MEQ/L Potassium Level 3.2 MEQ/L Chloride Level 99 MEQ/L Carbon Dioxide Level 32.3 MEQ/L Anion Gap 6 MEQ/L Estimat Glomerular Filtration Rate 40 ML/MIN Serum Osmolality 301 MOSM/KG Total Creatine Kinase 330 U/L Creatine Kinase MB 4.4 NG/ML Creatine Kinase MB % 1.3 % Troponin I 0.03 NG/ML Thyroid Stimulating Hormone 3rd Gen 0.723 uIU/ML Acetaminophen Level LESS THAN 2.0 MCG/ML Ethyl Alcohol Level LESS THAN 3 MG/DL B-Hydroxybutyrate 0.09 MMOL/L Blood Gas Puncture Site RT RADIAL Blood Gas Patient Temperature 98.6 Blood Gas HCO3 32 mmol/L Blood Gas Base Excess 7.9 mmol/L Blood Gas Oxygen Saturation 98 % Arterial Blood pH 7.49 Arterial Blood Partial Pressure CO2 42 mmHg Arterial Blood Partial Pressure O2 530 mmHg Arterial Blood Oxygen Content 22.0 Vol % Arterial Blood Carboxyhemoglobin 0.0 % Arterial Blood Methemoglobin 0.9 % Blood Gas Hemoglobin 15.0 G/DL Oxygen Delivery Device VENT Blood Gas Ventilator Setting SEE COMMENTS Blood Gas Inspired Oxygen 100 % Test 11/30/17 06:11 11/30/17 12:00 11/30/17 18:30 12/01/17 05:25 Nasal Screen MRSA (PCR) MRSA NOT DETECTED Blood Urea Nitrogen 24 MG/DL 24 MG/DL Creatinine 1.76 MG/DL 1.94 MG/DL Random Glucose 105 MG/DL 140 MG/DL Total Protein 6.9 GM/DL 6.5 GM/DL Albumin 3.7 GM/DL 3.1 GM/DL Calcium Level 8.3 MG/DL 8.0 MG/DL Alkaline Phosphatase 58 U/L 57 U/L Aspartate Amino Transf (AST/SGOT) 28 U/L 22 U/L Alanine Aminotransferase (ALT/SGPT) 17 U/L 14 U/L Total Bilirubin 0.6 MG/DL 0.8 MG/DL Sodium Level 141 MEQ/L 144 MEQ/L 146 MEQ/L Potassium Level 3.2 MEQ/L 3.3 MEQ/L Chloride Level 101 MEQ/L 112 MEQ/L Carbon Dioxide Level 30.3 MEQ/L 25.4 MEQ/L Anion Gap 10 MEQ/L 9 MEQ/L Estimat Glomerular Filtration Rate 42 ML/MIN 37 ML/MIN Serum Osmolality 304 MOSM/KG 309 MOSM/KG 313 MOSM/KG White Blood Count 13.2 TH/MM3 Red Blood Count 4.32 MIL/MM3 Hemoglobin 12.9 GM/DL Hematocrit 38.6 % Mean Corpuscular Volume 89.2 FL Mean Corpuscular Hemoglobin 29.7 PG Mean Corpuscular Hemoglobin Concent 33.3 % Red Cell Distribution Width 14.5 % Platelet Count 183 TH/MM3 Mean Platelet Volume 8.6 FL Neutrophils (%) (Auto) 83.3 % Lymphocytes (%) (Auto) 8.0 % Monocytes (%) (Auto) 7.7 % Eosinophils (%) (Auto) 0.6 % Basophils (%) (Auto) 0.4 % Neutrophils # (Auto) 11.0 TH/MM3 Lymphocytes # (Auto) 1.1 TH/MM3 Monocytes # (Auto) 1.0 TH/MM3 Eosinophils # (Auto) 0.1 TH/MM3 Basophils # (Auto) 0.1 TH/MM3 CBC Comment DIFF FINAL Differential Comment Prothrombin Time 11.0 SEC Prothromb Time International Ratio 1.1 RATIO Activated Partial Thromboplast Time 26.1 SEC Phosphorus Level 1.7 MG/DL Magnesium Level 2.3 MG/DL Lactic Acid Level 2.2 mmol/L Test 12/01/17 08:33 12/01/17 09:32 Urine Specific [place] 1.004 Urine Opiates Screen NEG Urine Barbiturates Screen NEG Urine Amphetamines Screen POS Urine Benzodiazepines Screen NEG Urine Cocaine Screen NEG Urine Cannabinoids Screen NEG (Brennan Messina) Medical Decision Making Impression and Plan Impression: 1. Severe brainstem-midbrain intracranial hemorrhage with extension to the third and fourth ventricle and hypothalamus. Follow-up CT scan with moderate progression of obstructive hydrocephalus. 2. History of methamphetamine use Given the severity of the hemorrhage and the patient's presenting neurologic exam, initial prognosis appears very poor. Patient remains comatose, no response to voice or noxious stimulation, no evident corneal or cough reflexes, patient off sedation for approximately 3 hrs. Prognosis poor. Reviewed labs for today. Leukocytosis essentially stable. Interval drop in haemoglobin, most likely r/t IVFs. INR 1.1 & aPTT 26.1. Sodium 146. Hypokalemia. Slight improvement in renal function. CT brain demonstrated acute blood products in the right basal ganglia and brainstem w/extension into the lateral ventricles & fourth ventricle resulting in ventriculomegaly w/a 4 mm [id number] midline shift. Ventriculostomy with 168 mL output in the past 24 hrs as of shift change this morning. POD #1 () s/p: Right frontal twist drill for ventriculostomy placement. Postoperative Diagnosis: (1) Intraparenchymal hemorrhage of brain Brainstem, midbrain intracranial hemorrhage with right thalamic and intraventricular extension. Progressive obstructive hydrocephalus. Plan: Primary & critical care management per [employer]. Neuro checks. Stat CT for any decline in neuro status. Monitor ICPs. Maintain serum sodium 150-155 range with serum osmolality 310-320 with as needed hypertonic saline and mannitol. Continue ventilatory support and sedation as needed for ventilator and ICP control. Mechanical DVT prophylaxis. Stress ulcer prophylaxis. Hold pharmacologic prophylaxis. Recommend Palliative Care consult. (Brennan Messina) Attending Statement The exam, history, and the medical decision-making described in the above note were completed with the assistance of the mid-level provider. I reviewed and agree with the findings presented. I attest that I had a [id number] encounter with the patient on the same day, and personally performed and documented my assessment and findings in the medical record. On my examination today, the patient remains intubated. He was sedation stopped for approximately 30 minutes he has pupils 6 mm nonreactive. Absent corneal and oculocephalic responses. Absent cough and gag response. No facial grimacing or extremity movement spontaneous or to deep pain. No eye opening. Not following commands. Discussed with the patient's fiance in the intensive care unit this morning Remains with extremely poor prognosis Optimizing respiratory, cardiac, electrolyte parameters. Anticipate cerebral blood flow study on 12/02/17 (Sheng Pathak MD) Brennan Messina Dec 01, 2017 10:57 Sheng Pathak MD Dec 01, 2017 20:21
[2017-12-01 14:45] LABS: HEPATITIS A AB IGM NEGATIVE (NEGATIVE); HEPATITIS B CORE AB IGM NEGATIVE (NEGATIVE)
[2017-12-01] MEDS ORDERED: DESMOPRESSIN ACETATE 4 MCG/ML VIAL IV PUSH PRN (15:45)
[2017-12-01] MEDS: VASOPRESSIN INJ 40 UNITS in DEXTROSE 5% IN WATER 100ML INJ 98 ML IV SCH ×2 (17:06)
[2017-12-02] VITALS (11 sets, daily range): BP systolic 114–126; BP diastolic 66–76; PULSE 93–103; RESP 12–22; TEMP 97.3–98.8; O2SAT 91–100
[2017-12-02] MEDS: DEXTROSE 5% IN WATE 1000ML INJ 1,000 ML IV SCH ×7 (02:15→13:45)
[2017-12-02] MEDS: RESP: ALBUTEROL 2.5 MG/IPRATROPIUM 0.5 MG NEB (SCH) INH ×2 (02:46→07:41)
[2017-12-02] MEDS: CHLORHEXIDINE GLUCONATE 2 % 1 PACK (2 CLOTHS) TOP SCH (04:00)
[2017-12-02 05:24] LABS: ALBUMIN 2.4 GM/DL (3.4-5.0); BICARBONATE 21.5 MEQ/L (21.0-32.0); CALCIUM 6.7 MG/DL (8.5-10.1); CALCIUM-PROTEIN CORRECTED 7.5 MG/DL (8.5-10.1); CREATININE 1.84 MG/DL (0.60-1.30); TOTAL BILIRUBIN ADULT 0.6 MG/DL (0.2-1.0); TOTAL PROTEIN 5.5 GM/DL (6.4-8.2)
[2017-12-02] MEDS: INSULIN NovoLIN REGULAR SUPPLEMENTAL SCALE SQ SCH ×3 (05:36→12:00)
[2017-12-02] MEDS: VASOPRESSIN INJ 40 UNITS in DEXTROSE 5% IN WATER 100ML INJ 98 ML IV SCH ×4 (07:39→08:27)
[2017-12-02] MEDS: CHLORHEXIDINE 0.12% (ORAL KIT) 15 ML CUP MT SCH (07:39)
[2017-12-02] MEDS: SODIUM CHLORIDE 0.9% FLUSH 10 ML FLUSH IV FLUSH SCH ×2 (07:39→07:40)
[2017-12-02] MEDS: ARTIFICIAL TEARS OPTH SOLN 15 ML BTL EACH EYE SCH ×2 (07:39→13:00)
[2017-12-02] MEDS: PANTOPRAZOLE SODIUM 40 MG VIAL IV PUSH SCH (07:47)
[2017-12-02] MEDS: DOCUSATE SODIUM 50 MG/SENNA 8.6 MG TAB PO SCH (07:47)
[2017-12-02] MEDS: levETIRAcetam INJ 500 MG in SODIUM CHLORIDE 0.9% INJ 100 ML IV SCH (07:47)
[2017-12-02] MEDS: MULTIVITAMIN INJ 10 ML, THIAMINE INJ 100 MG, FOLIC ACID INJ 1 MG in SODIUM CHLORID 0.9%... IV SCH (07:47)
--- NOTE | 2017-12-02 09:18 | HHI.NSPN ---
(Brennan Messina) History Chief Complaint: Unable to obtain due to patient's clinical condition. (Brennan Messina) Interval History 11/30: 47-year-old male transferred from [facility] after presenting to the emergency room with altered mental status, hypertension. Initial CT scan head revealed severe abccsmhka-namqcovf-zumkpqkm intracranial hemorrhage with intraventricular extension. Initial CT scan head [facility] per report without significant overall hydrocephalus. No seizure activity reported. [facility] He was admitted to the ISC unit and subsequently had a ventriculostomy placed. 12/01: The patient is comatose and nonresponsive. His sedation has been off for approximately three hours when seen. He remains intubated and mechanically ventilated. 12/02: The patient remains comatose, intubated and mechanically ventilated. He is not on any sedation. The only response was slight flexion of the feet to local noxious stimulation which is felt to be a reflex arc. Nursing reports that the ventriculostomy waveform has been dampened and that it is not draining. Dr Pathak was notified and felt that it was due to cerebral edema compressing the catheter. The plan is to do an apnea test this morning and then if necessary to do a brain blood flow study. (Brennan Messina) System Review Comments Unable to obtain due to patient's clinical condition. (Brennan Messina) Exam Results 11/30/17 11/30/17 12/01/17 12/01/17 12/02/17 12/02/17 06:00 18:00 06:00 18:00 06:00 18:00 Intake Total 105 ml 505 ml 250 ml 2517 ml 4105 ml 2205 ml Output Total 2348 ml 5815 ml 520 ml Balance 105 ml -1843 ml 250 ml -3298 ml 3585 ml 2205 ml Intake IV Total 105 ml 505 ml 250 ml 2517 ml 4105 ml 2205 ml Output Urine Total 1350 ml 5600 ml 510 ml Gastric Drainage Total 900 ml 85 ml 0 ml Drainage Total 98 ml 130 ml 10 ml # Bowel Movements 0 Vital Signs Date Time Temp Pulse Resp B/P (MAP) Pulse Ox O2 Delivery O2 Flow Rate FiO2 12/02/17 08:27 103 118/73 12/02/17 08:00 98.8 98 22 114/66 (82) 92 12/02/17 08:00 80 12/02/17 08:00 103 12/02/17 07:32 92 80 12/02/17 07:32 91 80 12/02/17 07:15 92 Mechanical Ventilator 75 12/02/17 07:00 88 Mechanical Ventilator 40 12/02/17 06:00 96 12/02/17 04:00 93 12/02/17 04:00 97.5 93 22 119/70 (86) 100 12/02/17 04:00 40 12/02/17 02:46 100 40 12/02/17 02:00 93 12/02/17 00:00 97.3 94 22 126/74 (91) 100 12/02/17 00:00 94 12/02/17 00:00 40 12/01/17 23:47 100 40 12/01/17 22:00 96 12/01/17 21:56 100 40 12/01/17 20:00 40 12/01/17 20:00 97 12/01/17 20:00 98.4 96 22 137/88 (104) 100 12/01/17 19:00 100 Mechanical Ventilator 40 12/01/17 18:00 94 12/01/17 17:06 92 130/75 12/01/17 16:44 100 40 12/01/17 16:40 100 40 12/01/17 16:00 98.4 88 22 126/78 (94) 100 12/01/17 16:00 90 12/01/17 16:00 40 12/01/17 14:12 100 40 12/01/17 14:00 95 12/01/17 12:00 95.0 80 22 106/65 (79) 100 12/01/17 12:00 82 99/65 12/01/17 12:00 84 12/01/17 12:00 40 12/01/17 11:23 100 40 12/01/17 10:00 84 12/01/17 08:00 84 12/01/17 08:00 96.1 80 28 130/64 (86) 100 12/01/17 08:00 40 12/01/17 07:54 100 40 12/01/17 07:00 100 Mechanical Ventilator 40 12/01/17 06:20 30 12/01/17 06:20 97.8 76 28 148/68 (94) 100 12/01/17 06:17 78 12/01/17 03:50 30 12/01/17 03:48 98.0 87 28 131/65 (87) 100 12/01/17 03:41 75 12/01/17 03:39 100 Mechanical Ventilator 40 12/01/17 03:31 76 132/65 12/01/17 03:14 100 40 11/30/17 23:31 100 50 11/30/17 20:23 95 50 11/30/17 18:00 81 11/30/17 16:38 100 50 11/30/17 16:00 87 11/30/17 16:00 99.0 87 28 133/67 (89) 100 11/30/17 14:00 85 11/30/17 13:55 84 139/75 11/30/17 12:00 98.6 79 28 143/76 (98) 100 11/30/17 12:00 79 11/30/17 10:00 79 11/30/17 08:00 99.7 89 28 109/57 (74) 100 11/30/17 08:00 100 80 11/30/17 08:00 84 11/30/17 08:00 100 80 11/30/17 07:15 85 132/68 11/30/17 07:00 100 Mechanical Ventilator 70 11/30/17 07:00 84 11/30/17 06:47 98.7 97 20 134/67 (89) 100 11/30/17 06:10 100 80 11/30/17 05:17 100 100 11/30/17 05:03 100 100 11/30/17 04:00 100 100 11/30/17 02:50 100 100 (Brennan Messina) Physical Examination GENERAL: Comatose, off sedation for past 24 hrs, intubated & mechanically ventilated, probable reflex arc to local noxious stimulation of feet. HEENT: Normocephalic, atraumatic. Pupils 6 mm fixed bilaterally. No evident otorrhea or rhinorrhea. Orally intubated. OGT. MUSCULOSKELETAL: No evident clubbing or deformity. Probable reflex arc to local noxious stimulation of feet. NEUROLOGICAL: Comatose, no sedation the past 24 hrs. No response to voice. Does not follow commands. No eye opening. Pupils 6 mm fixed bilaterally. No corneal reflex. No cough reflex. Absent oculocephalic response. Slight upward response R>L foot, most likely reflex arc, o/w no response to local or central noxious stimulation. Response present upon re-examination after 15 minutes to right foot only. Ventriculostomy to 5 cm H2O pressure w/blood-tinged CSF drainage. (Brennan Messina) Lab, Micro, Other Results Recent Impressions Chest X-Ray 12/01/17 0000 Signed Impressions: Service Date/Time: Friday, December 01, 2017 04:32 - CONCLUSION: Stable chest x-ray without an acute cardiopulmonary abnormality identified. Isiah Andre MD Chest X-Ray 11/30/17 0334 Signed Impressions: Service Date/Time: Thursday, November 30, 2017 03:43 - CONCLUSION: Left IJ central line distal tip in the SVC. No pneumothorax is visualized. Isiah Andre MD Head CT 11/30/17 0000 Signed Impressions: Service Date/Time: Thursday, November 30, 2017 04:14 - CONCLUSION: There are acute blood products within the right basal ganglia and brainstem with extension of the blood products into the lateral ventricles and fourth ventricle. These findings result in ventriculomegaly with 4 mm of [id number] midline shift. Isiah Andre MD Laboratory Tests Test 11/30/17 04:41 11/30/17 04:44 11/30/17 04:47 11/30/17 05:20 Prothrombin Time 10.7 SEC Prothromb Time International Ratio 1.1 RATIO Activated Partial Thromboplast Time 24.2 SEC Fibrinogen 368 mg/dL Random Cortisol 11.4 MCG/DL Salicylates Level LESS THAN 1.7 MG/DL White Blood Count 13.0 TH/MM3 Red Blood Count 5.00 MIL/MM3 Hemoglobin 15.1 GM/DL Hematocrit 44.1 % Mean Corpuscular Volume 88.3 FL Mean Corpuscular Hemoglobin 30.3 PG Mean Corpuscular Hemoglobin Concent 34.3 % Red Cell Distribution Width 13.7 % Platelet Count 220 TH/MM3 Mean Platelet Volume 9.4 FL Neutrophils (%) (Auto) 85.8 % Lymphocytes (%) (Auto) 9.1 % Monocytes (%) (Auto) 4.8 % Eosinophils (%) (Auto) 0.1 % Basophils (%) (Auto) 0.2 % Neutrophils # (Auto) 11.2 TH/MM3 Lymphocytes # (Auto) 1.2 TH/MM3 Monocytes # (Auto) 0.6 TH/MM3 Eosinophils # (Auto) 0.0 TH/MM3 Basophils # (Auto) 0.0 TH/MM3 CBC Comment DIFF FINAL Differential Comment Blood Urea Nitrogen 22 MG/DL Creatinine 1.82 MG/DL Random Glucose 173 MG/DL Total Protein 8.0 GM/DL Albumin 4.1 GM/DL Calcium Level 8.5 MG/DL Phosphorus Level 1.7 MG/DL Magnesium Level 2.1 MG/DL Alkaline Phosphatase 67 U/L Aspartate Amino Transf (AST/SGOT) 26 U/L Alanine Aminotransferase (ALT/SGPT) 19 U/L Total Bilirubin 0.8 MG/DL Sodium Level 137 MEQ/L Potassium Level 3.2 MEQ/L Chloride Level 99 MEQ/L Carbon Dioxide Level 32.3 MEQ/L Anion Gap 6 MEQ/L Estimat Glomerular Filtration Rate 40 ML/MIN Serum Osmolality 301 MOSM/KG Total Creatine Kinase 330 U/L Creatine Kinase MB 4.4 NG/ML Creatine Kinase MB % 1.3 % Troponin I 0.03 NG/ML Thyroid Stimulating Hormone 3rd Gen 0.723 uIU/ML Acetaminophen Level LESS THAN 2.0 MCG/ML Ethyl Alcohol Level LESS THAN 3 MG/DL B-Hydroxybutyrate 0.09 MMOL/L Blood Gas Puncture Site RT RADIAL Blood Gas Patient Temperature 98.6 Blood Gas HCO3 32 mmol/L Blood Gas Base Excess 7.9 mmol/L Blood Gas Oxygen Saturation 98 % Arterial Blood pH 7.49 Arterial Blood Partial Pressure CO2 42 mmHg Arterial Blood Partial Pressure O2 530 mmHg Arterial Blood Oxygen Content 22.0 Vol % Arterial Blood Carboxyhemoglobin 0.0 % Arterial Blood Methemoglobin 0.9 % Blood Gas Hemoglobin 15.0 G/DL Oxygen Delivery Device VENT Blood Gas Ventilator Setting SEE COMMENTS Blood Gas Inspired Oxygen 100 % Test 11/30/17 06:11 11/30/17 12:00 11/30/17 18:30 12/01/17 05:25 Nasal Screen MRSA (PCR) MRSA NOT DETECTED Blood Urea Nitrogen 24 MG/DL 24 MG/DL Creatinine 1.76 MG/DL 1.94 MG/DL Random Glucose 105 MG/DL 140 MG/DL Total Protein 6.9 GM/DL 6.5 GM/DL Albumin 3.7 GM/DL 3.1 GM/DL Calcium Level 8.3 MG/DL 8.0 MG/DL Alkaline Phosphatase 58 U/L 57 U/L Aspartate Amino Transf (AST/SGOT) 28 U/L 22 U/L Alanine Aminotransferase (ALT/SGPT) 17 U/L 14 U/L Total Bilirubin 0.6 MG/DL 0.8 MG/DL Sodium Level 141 MEQ/L 144 MEQ/L 146 MEQ/L Potassium Level 3.2 MEQ/L 3.3 MEQ/L Chloride Level 101 MEQ/L 112 MEQ/L Carbon Dioxide Level 30.3 MEQ/L 25.4 MEQ/L Anion Gap 10 MEQ/L 9 MEQ/L Estimat Glomerular Filtration Rate 42 ML/MIN 37 ML/MIN Serum Osmolality 304 MOSM/KG 309 MOSM/KG 313 MOSM/KG White Blood Count 13.2 TH/MM3 Red Blood Count 4.32 MIL/MM3 Hemoglobin 12.9 GM/DL Hematocrit 38.6 % Mean Corpuscular Volume 89.2 FL Mean Corpuscular Hemoglobin 29.7 PG Mean Corpuscular Hemoglobin Concent 33.3 % Red Cell Distribution Width 14.5 % Platelet Count 183 TH/MM3 Mean Platelet Volume 8.6 FL Neutrophils (%) (Auto) 83.3 % Lymphocytes (%) (Auto) 8.0 % Monocytes (%) (Auto) 7.7 % Eosinophils (%) (Auto) 0.6 % Basophils (%) (Auto) 0.4 % Neutrophils # (Auto) 11.0 TH/MM3 Lymphocytes # (Auto) 1.1 TH/MM3 Monocytes # (Auto) 1.0 TH/MM3 Eosinophils # (Auto) 0.1 TH/MM3 Basophils # (Auto) 0.1 TH/MM3 CBC Comment DIFF FINAL Differential Comment Prothrombin Time 11.0 SEC Prothromb Time International Ratio 1.1 RATIO Activated Partial Thromboplast Time 26.1 SEC Phosphorus Level 1.7 MG/DL Magnesium Level 2.3 MG/DL Lactic Acid Level 2.2 mmol/L Test 12/01/17 08:33 12/01/17 09:32 12/01/17 10:54 12/01/17 11:37 Urine Specific [place] 1.004 Urine Opiates Screen NEG Urine Barbiturates Screen NEG Urine Amphetamines Screen POS Urine Benzodiazepines Screen NEG Urine Cocaine Screen NEG Urine Cannabinoids Screen NEG Hepatitis A IgM Antibody NEGATIVE Hepatitis B Surface Antigen NEGATIVE Hepatitis B Core IgM Antibody NEGATIVE Hepatitis C Antibody NEGATIVE HIV (1&2) Antibody NEGATIVE Blood Gas Puncture Site ART LINE Blood Gas Patient Temperature 98.6 Blood Gas HCO3 20 mmol/L Blood Gas Base Excess -3.5 mmol/L Blood Gas Oxygen Saturation 97 % Arterial Blood pH 7.46 Arterial Blood Partial Pressure CO2 28 mmHg Arterial Blood Partial Pressure O2 229 mmHg Arterial Blood Oxygen Content 18.5 Vol % Arterial Blood Carboxyhemoglobin 0.8 % Arterial Blood Methemoglobin 1.2 % Blood Gas Hemoglobin 13.2 G/DL Oxygen Delivery Device VENTILATOR Blood Gas Ventilator Setting Blood Gas Inspired Oxygen 40 % Sodium Level 159 MEQ/L Serum Osmolality 333 MOSM/KG Test 12/01/17 16:41 12/01/17 16:58 12/01/17 18:00 12/01/17 23:20 Sodium Level 161 MEQ/L 158 MEQ/L 152 MEQ/L Blood Gas Puncture Site ART LINE Blood Gas Patient Temperature 98.6 Blood Gas HCO3 20 mmol/L Blood Gas Base Excess -4.0 mmol/L Blood Gas Oxygen Saturation 97 % Arterial Blood pH 7.39 Arterial Blood Partial Pressure CO2 34 mmHg Arterial Blood Partial Pressure O2 215 mmHg Arterial Blood Oxygen Content 16.8 Vol % Arterial Blood Carboxyhemoglobin 0.9 % Arterial Blood Methemoglobin 1.2 % Blood Gas Hemoglobin 11.9 G/DL Oxygen Delivery Device VENTILATOR Blood Gas Ventilator Setting PRVC/22/500/+5/IT0.9 Blood Gas Inspired Oxygen 40 % Test 12/02/17 04:15 12/02/17 04:23 12/02/17 08:39 Blood Urea Nitrogen 19 MG/DL Creatinine 1.84 MG/DL Random Glucose 174 MG/DL Total Protein 5.5 GM/DL Albumin 2.4 GM/DL Calcium Level 6.7 MG/DL Alkaline Phosphatase 44 U/L Aspartate Amino Transf (AST/SGOT) 13 U/L Alanine Aminotransferase (ALT/SGPT) 12 U/L Total Bilirubin 0.6 MG/DL Sodium Level 145 MEQ/L Potassium Level 3.4 MEQ/L Chloride Level 115 MEQ/L Carbon Dioxide Level 21.5 MEQ/L Anion Gap 9 MEQ/L Estimat Glomerular Filtration Rate 40 ML/MIN Protein Corrected Calcium 7.5 MG/DL Blood Gas Puncture Site ART LINE Blood Gas Patient Temperature 98.6 Blood Gas HCO3 19 mmol/L Blood Gas Base Excess -5.4 mmol/L Blood Gas Oxygen Saturation 93 % Arterial Blood pH 7.34 Arterial Blood Partial Pressure CO2 37 mmHg Arterial Blood Partial Pressure O2 80 mmHg Arterial Blood Oxygen Content 14.8 Vol % Arterial Blood Carboxyhemoglobin 0.8 % Arterial Blood Methemoglobin 1.3 % Blood Gas Hemoglobin 11.3 G/DL Oxygen Delivery Device VENT Blood Gas Ventilator Setting SEE COMMENTS (Brennan Messina) Medical Decision Making Impression and Plan Impression: 1. Severe brainstem-midbrain intracranial hemorrhage with extension to the third and fourth ventricle and hypothalamus. Follow-up CT scan with moderate progression of obstructive hydrocephalus. 2. History of methamphetamine use Given the severity of the hemorrhage and the patient's presenting neurologic exam, initial prognosis appears very poor. Patient remains comatose, off sedation past 24 hrs. Probable reflex arc to feet to local noxious stimulation, present on repeat exam to right only, o/w no response to voice or noxious stimulation. No evident corneal or cough reflexes. Prognosis poor. Intermittent tachycardia. Reviewed labs for today. Sodium 145. Hypokalemia essentially stable. Slight improvement in renal function. CT brain demonstrated acute blood products in the right basal ganglia and brainstem w/extension into the lateral ventricles & fourth ventricle resulting in ventriculomegaly w/a 4 mm [id number]-bv-[id number] midline shift. Ventriculostomy with 70 mL output in the past 24 hrs as of shift change this morning. POD #2 () s/p: Right frontal twist drill for ventriculostomy placement. Postoperative Diagnosis: (1) Intraparenchymal hemorrhage of brain Brainstem, midbrain intracranial hemorrhage with right thalamic and intraventricular extension. Progressive obstructive hydrocephalus. Plan: Discussed plan of care with family. Primary & critical care management per [employer] Presser. Neuro checks. Stat CT for any decline in neuro status. Monitor ICPs. Maintain serum sodium 150-155 range with serum osmolality 310-320 with as needed hypertonic saline and mannitol. Continue ventilatory support and sedation as needed for ventilator and ICP control. Mechanical DVT prophylaxis. Stress ulcer prophylaxis. Hold pharmacologic prophylaxis. Palliative Care following. Apnea test today, possible brain blood flow study if necessary. (Brennan Messina) Attending Statement The exam, history, and the medical decision-making described in the above note were completed with the assistance of the mid-level provider. I reviewed and agree with the findings presented. I attest that I had a [id number] encounter with the patient on the same day, and personally performed and documented my assessment and findings in the medical record. On my examination of 12/02/2017, the patient's ventriculostomy has stopped functioning, some blood in the line. His pupils are 7 mm nonreactive Absent corneal, oculocephalic, oculovestibular responses. Absent cough and gag response. No response to deep pain in the extremities. Apnea test results reviewed. Findings consistent with brain . (Sheng Pathak MD) Brennan Messina Dec 02, 2017 09:18 Sheng Pathak MD Dec 03, 2017 00:14
--- NOTE | 2017-12-02 11:51 | HHI.CCPN ---
Subjective Remarks/Hospital Course This is a 47-year-old male. Date of admission 11/30/2017. Past medical history includes hypertension methamphetamine use. Patient was in his normal himself when he took a shower today was found by his girlfriend unresponsive. He has been using methamphetamine for the past 6 months. Unknown reasons. Urine tox screen positive. Patient presented to [facility] in [place] as a stroke alert. Due to altered mental status patient was intubated using 20 g etomidate 100 mg succinylcholine. Received [address] brain revealed intra-pedicle hemorrhage 4.7 x 2.2 cm in the right thalamus, midbrain and vicky with intraventricular extension to the third, fourth and lateral ventricles. Patient received mannitol at the facility. Blood pressure was elevated and was treated with labetalol and propofol drip. Neurosurgery was contacted our facility wished for us to accept consultation. CT brain currently pending. 3% saline, mannitol and levetiracetam involvement provided at this facility. Neurological patient's pupils are 9 mm left 8 mm on the right sluggish. Patient extends right upper extremity, flexes left upper extremity, upward toes/withdraws bilateral lower extremities. Positive gag and cough. Positive corneal 12/01: Unresponsive, pupils fixed. Alkalosis, will correct and assess respiratory drive. ICP elevated. Patient has developed DI, will start vasopressin and prn desmopressin. 12/02: No reflexes, no spontaneous respirations during apnea test. pH 7.29 -> 7.055, PCO2 41 -> 82. Has progressed to brain Objective Vital Signs Date Time Temp Pulse Resp B/P (MAP) Pulse Ox O2 Delivery O2 Flow Rate FiO2 12/02/17 10:45 95 100 12/02/17 08:27 103 118/73 12/02/17 08:00 98.8 22 12/02/17 07:15 Mechanical Ventilator Intake and Output 12/02/17 12/02/17 12/03/17 08:00 16:00 00:00 Intake Total 3000 ml 1205 ml Output Total 520 ml Balance 2480 ml 1205 ml Result Diagram: 12/01/17 0525 12/02/17 0839 Other Results Laboratory Tests Test 12/01/17 16:58 12/02/17 04:23 12/02/17 10:15 12/02/17 10:59 Blood Gas Puncture Site ART LINE ART LINE ART LINE ART LINE Blood Gas Patient Temperature 98.6 98.6 98.6 98.6 Blood Gas HCO3 20 mmol/L (22-26) 19 mmol/L (22-26) 19 mmol/L (22-26) 22 mmol/L (22-26) Blood Gas Base Excess -4.0 mmol/L (-2-2) -5.4 mmol/L (-2-2) -6.3 mmol/L (-2-2) -7.4 mmol/L (-2-2) Blood Gas Oxygen Saturation 97 % (90-100) 93 % (90-100) 94 % (90-100) 81 % ( 90-100) Arterial Blood pH 7.39 (7.380-7.420) 7.34 (7.380-7.420) 7.29 (7.380-7.420) 7.06 (7.380-7.420) Arterial Blood Partial Pressure CO2 34 mmHg (38-42) 37 mmHg (38-42) 41 mmHg (38-42) 82 mmHg (38-42) Arterial Blood Partial Pressure O2 215 mmHg (61-120) 80 mmHg (61-120) 86 mmHg (61-120) 66 mmHg (61-120) Arterial Blood Oxygen Content 16.8 Vol % (12.0-20.0) 14.8 Vol % (12.0-20.0) 14.0 Vol % (12.0-20.0) 12.9 Vol % (12.0-20.0) Arterial Blood Carboxyhemoglobin 0.9 % (0-4) 0.8 % (0-4) 0.7 % (0-4) 0.3 % (0-4) Arterial Blood Methemoglobin 1.2 % (0-2) 1.3 % (0-2) 1.2 % (0-2) 1.2 % (0-2) Blood Gas Hemoglobin 11.9 G/DL (12.0-16.0) 11.3 G/DL (12.0-16.0) 10.5 G/DL (12.0-16.0) 11.3 G/DL (12.0-16.0) Oxygen Delivery Device VENTILATOR VENT VENTILATOR VENTILATOR Blood Gas Ventilator Setting [facility]/22/500/+5/IT0.9 SEE COMMENTS PRVC/AC PEEP10 Blood Gas Inspired Oxygen 40 % 80 % 100 % Imaging CT brain pending Objective Remarks GENERAL: 47-year-old male, unresponsive SKIN: Warm and dry. No rash HEAD: Atraumatic. Normocephalic. EYES: Pupils 4 mm right, 4 mm left. Do not react. No scleral icterus. No injection or drainage. ENT: No nasal bleeding or discharge. Mucous membranes pink and moist. NECK: Trachea midline. Orally intubated. CARDIOVASCULAR: Regular rate and rhythm. S1, S2. No JVD. RESPIRATORY: No accessory muscle use. Clear to auscultation. Breath sounds equal bilaterally. GASTROINTESTINAL: Abdomen soft, non-tender, nondistended, active bowel sounds are appreciated. No guarding. MUSCULOSKELETAL: Extremities without significant peripheral edema. No obvious deformities. Well perfused. NEUROLOGICAL: Absent gag and cough. No DTRs, planters no response. Corneals, cold calorics, Doll's eyes absent. No spontaneous respiratory effort - failed breathing test with suitable rise in CO2. A/P Assessment and Plan Neuro/Psych: Right thalamic/midbrain /vicky intraparenchymal hemorrhage 4.7 x 3.3 cm with intraventricular extension to the third, fourth and lateral ventricles. Methamphetamine use Propofol/fentanyl drips for sedation/analgesia while intubated Goal of RA SS -[address] brain at [facility] which revealed right thalamic hematoma/ intraparenchymal hemorrhage 4.7 x 3 cm involving the midbrain and vicky with intraventricular extension. Received 20 mg labetalol and started on nicardipine drip Neurosurgery/Dr. Pathak accepted and asked for supervisor laundry to admit CT brain without contrast 11/30 pending Currently on 3% saline at 20 cc an hour. Goal 150-155 Mannitol 12.5 g IV every 8 hours. Goal osm ~310 EEG ordered Levetiracetam 500 mg IV twice daily seizure prophylaxis Seizure precautions Repeat UDS ordered. Positive for amphetamines at [facility] CV: Hypertensive emergency Currently on as needed labetalol/nicardipine drip to maintain systolic blood pressure less than 140 EKG and cardiac markers currently pending 2D echocardiogram ordered Resp: Acute respiratory failure [facility] 16/500/50 -> APRV. Ventilator bundle Albuterol/ipratropium aerosols every 6 hours with albuterol aerosols every 2 hours. Dyspnea Spontaneous breathing trials daily Follow-up ABG/chest x-ray End-tidal CO2 between 30 and 35 GI: Elevated transaminases NGT to LIWS Pantoprazole for GI prophylaxis Docusate sodium/senna 1 tablet twice daily for bowel regimen : Stuart catheter for accurate I's and O's in a critically ill patient Endo: Sliding scale insulin Accu-Cheks to maintain euglycemia Renal: Creatinine currently elevated. Monitor urine output Accurate I's and O's Diamox 500 mg iv X 1 for alkalosis and apnea test Heme: CBC and coags was normal at [facility]. ID: Monitor for infection MSK: PT evaluate and treat FEN: Replace electrolytes as clinically indicated Access -Utilize left IJ CVL day #3 placed 3/6 Prophylaxis -GI pantoprazole -DVT SCD/holding pharmacological prophylaxis in light of acute intraparenchymal hemorrhage Overall impression: Large basal ganglia bleed and critically ill with diabetes insipidus and now progressed to brain . Await second physician confirmation. Critical care 50 mins aside from procedures Adolfo Salcedo MD Dec 02, 2017 11:51
[2017-12-02] MEDS ORDERED: SODIUM CHLOR 0.9% 1000 ML INJ 1,000 ML IV ONE (12:00)
--- NOTE | 2017-12-02 12:28 | DEATH SUM ---
Pronouncement Date Pronounced : Dec 02, 2017 Time Of : 12:12 Pronouncement Called to pronounce of patient. Please see separate documentation in the chart. patient met criteria for by neurologic criteria. Based on Apnea test without spontaneous respiration and 2 independent physician evaluations. I declared the patient based on neurologic criteria at 12:12 on 12/02/2017. Preliminary Cause of : Brain Willian Porter MD Dec 02, 2017 12:28
[2017-12-02] MEDS ORDERED: FUROSEMIDE 40 MG/4 ML VIAL ONE (13:23)
[2017-12-02] MEDS ORDERED: FUROSEMIDE 20 MG/2 ML VIAL IV PUSH ONE (14:15)
[2017-12-02] MEDS ORDERED: IODIXANOL 320 MG/ML 50 ML VIAL (for Rad CT) IVCONTRAST ONE (14:17)
--- NOTE | 2017-12-02 14:42 | PD.CONS ---
Consult Service Palliative Care Consult Requested By Brennan Messina NP Primary Care Physician Unknown Reason for Consultation a. To assist with evaluation and management of symptoms including: Encephalopathy, dyspnea b. To assist medical decision maker(s) with: better understanding of current medical conditions; weighing benefits/burdens of medical treatment options; making medical treatment decisions. HPI History of Present Illness This is a 47-year-old male with a past medical history of hypertension, noncompliant with medications, who was found unresponsive in the shower by his significant other. Initially he was seen in [facility] and initial CT scan revealed severe brain [id number] intracranial hemorrhage with intraventricular extension. He was transferred to [facility] intubated for airway protection. Per hotel or motel room service supervisor notes initial CT of the brain had revealed intra-pedicle hemorrhage 4.7 x 2.2 cm in the right thalamus, midbrain and vicky with intraventricular extension into the third fourth and lateral ventricles. Patient had received mannitol, etomidate and succinylcholine. Neurosurgery at [facility] was consulted and accepted the patient and immediately started 3% saline, mannitol and levetiracetam. On presentation patient's pupils were 9 mm on the left and 8 mm on the right with sluggish response. Patient showed extension of the right upper extremity, flexed left upper extremity and demonstrated upward toes/withdraws bilateral lower extremities, with positive corneal reflex, gag and cough. He had a history of methamphetamine use for the prior 6 months and his urine tox screen was found to be positive at [facility] and confirmed by repeat toxicology screen at [facility]. He had a history of polysubstance abuse intermittently to include methamphetamines, marijuana, cocaine and opioid pills. His significant other indicates that he used a significant amount of alcohol as well. ED course: * Radiology: CT of the head shows acute blood products within the right basal ganglia and brainstem with extension of the blood products into the lateral ventricles and fourth ventricle. These findings resulting ventriculomegaly with a 4 mm right to left midline shift. The acute hemorrhage in the right basal ganglia measures approximately 2.9 x 2.8 cm with surrounding vasogenic edema and mass-effect. There is acute hemorrhage within the brainstem in the region of the vicky and midbrain and acute blood products extend into the fourth ventricle. Ventricles are mildly enlarged. The elysia-mesencephalic cisterns are also effaced and visualized sinuses are clear, no skull fracture is identified. * Laboratory: WBC 13.0, hemoglobin 15.1, hematocrit 44.1, platelets 220, sodium 137, potassium 3.2, BUN 22, creatinine 1.82, phosphorus 1.7, total creatinine kinase 330, CK-MB to 4.4, TSH 0.723. Arterial blood gas pH 7.49, PCO2 42, PO2 530, HCO3 32, base excess +7.9, oxygen saturation 98% on 100% FiO2. This is a comatose young appearing male lying in bed unresponsive, no gag or corneal reflexes. Girlfriend is at bedside. Right frontal ventriculostomy placed. Opening pressure was 12 cm of water. 2D echocardiogram was obtained showing a moderate to severely reduced ejection fraction in the range of 35-40% with moderate concentric left ventricular hypertrophy, pseudo-normal left ventricular filling pattern with concomitant abnormal relaxation and increased filling pressure consistent with grade 2 diastolic dysfunction. Apnea test is pending. Patient is on the organ donor registry and [facility] is following. Family meeting is pending today. . Function/Cognitive Trajectory His functional decline was acute from the spontaneous brain bleed. At this time brain is suspected, pending apnea test. . Review of Systems ROS Limitations: Clinical Condition (Patient is nonverbal and unable to provide their own ROS. 10 part ROS taken as best as possible from medical record and available family.), Unresponsive Past Family Social History Coded Allergies: No Known Allergies (Unverified Allergy, Unknown, 11/30/17) Past Medical History Hypertension Polysubstance abuse . Past Surgical History Appendectomy. . Reported Medications Reported Meds & Active Scripts Active Phenergan/Codeine 6.25/10 Mg/5 Ml (Promethazine HCl/Codeine) Soln 10 Ml PO Q6HPRN FOR COUGH Doxycycline Hyclate 100 Mg Tab 1 Tab PO BID Cipro (Ciprofloxacin) 500 Mg Tab 1 Tab PO BID Reported Keflex (Cephalexin Monohydrate) 500 Mg Cap 500 Mg PO Q6 . Current Medications Medications (Trade) Dose Ordered Sig/Halima Route Start Time Stop Time Status Last Admin (NS Flush) DAILY IV FLUSH 11/30/17 09:00 12/01/17 08:52 (NS Flush) UNSCH PRN IV FLUSH 11/30/17 03:45 (NS Flush) 2 ml UNSCH PRN IV FLUSH 11/30/17 03:45 (NS Flush) 2 ml BID IV FLUSH 11/30/17 09:00 12/02/17 07:39 (Protonix Inj) 40 mg DAILY IV PUSH 11/30/17 09:00 12/02/17 07:47 (Tears Naturale Opth Soln) 1 drop TID EACH EYE 11/30/17 09:00 12/02/17 13:00 (Zofran Inj) 4 mg Q6H PRN IV PUSH 11/30/17 03:45 (Duoneb Neb) 1 ampule Q6HR NEB INH 11/30/17 04:00 12/02/17 07:41 (Albuterol Neb) 2.5 mg Q2HR NEB PRN INH 11/30/17 03:45 Miscellaneous Information 1 Q361D XX 11/30/17 03:45 (Chlorhexidine 2% Cloth) 3 pack Taper DAILY@04 TOP 11/30/17 04:00 11/26/18 03:59 (Chlorhexidine 2% Cloth) 3 pack UNSCH PRN TOP 11/30/17 03:45 (Elysia-Colace) 1 tab BID PO 11/30/17 09:00 12/02/17 07:47 (Milk Of Magnesia Liq) 30 ml Q12H PRN PO 11/30/17 03:45 (Senokot) 17.2 mg Q12H PRN PO 11/30/17 03:45 (Dulcolax Supp) 10 mg DAILY PRN RECTAL 11/30/17 03:45 (Lactulose Liq) 30 ml DAILY PRN PO 11/30/17 03:45 (Peridex 0.12% Liq) 15 ml BID@08,20 MT 11/30/17 08:00 12/02/17 07:39 (D50w (Vial) Inj) 50 ml UNSCH PRN IV PUSH 11/30/17 03:45 (Glucagon Inj) 1 mg UNSCH PRN OTHER 11/30/17 03:45 (NovoLIN R SUPPLEMENTAL SCALE) 1 Q6HR SQ 11/30/17 06:00 12/02/17 05:36 Levetriacetam 500 mg/Sodium Chloride 105 ml @ 420 mls/hr Q12HR IV 11/30/17 09:00 12/02/17 07:47 Multivitamins 10 ml/Thiamine HCl 100 mg/Folic Acid 1 mg/Sodium Chloride 511.2 ml @ 125 mls/hr DAILY IV 11/30/17 09:00 12/03/17 08:59 12/02/17 07:47 (Trandate Inj) 10 mg Q1HR PRN IV PUSH 11/30/17 04:00 Potassium Chloride 100 ml @ 50 mls/hr Q2H PRN IV 11/30/17 04:45 Potassium Chloride 100 ml @ 50 mls/hr Q2H PRN IV 11/30/17 04:45 (K-Lyte Cl Eff) 50 meq UNSCH PRN PO 11/30/17 04:45 Potassium Chloride 100 ml @ 25 mls/hr UNSCH PRN IV 11/30/17 04:45 12/02/17 05:37 Potassium Chloride 100 ml @ 50 mls/hr Q2H PRN IV 11/30/17 04:45 Magnesium Sulfate 4 gm/Sodium Chloride 100 ml @ 50 mls/hr UNSCH PRN IV 11/30/17 04:45 (Mag-Ox) 800 mg UNSCH PRN PO 11/30/17 04:45 Magnesium Sulfate 2 gm/Sodium Chloride 100 ml @ 50 mls/hr UNSCH PRN IV 11/30/17 04:45 (K-Phos) 2,000 mg Q4H PRN PO 11/30/17 04:45 Sodium Phosphate 30 mmol/Sodium Chloride 250 ml @ 42 mls/hr UNSCH PRN IV 11/30/17 04:45 (K-Phos) 2,000 mg UNSCH PRN PO/TUBE 11/30/17 04:45 Potassium Phosphate 30 mmol/ Sodium Chloride 260 ml @ 42 mls/hr UNSCH PRN IV 11/30/17 04:45 11/30/17 17:09 Nicardipine HCl 25 mg/Sodium Chloride 250 ml @ 50 mls/hr TITRATE PRN IV 11/30/17 07:00 12/01/17 03:31 Norepinephrine Bitartrate 4 mg/ Sodium Chloride 250 ml @ 7.5 mls/hr TITRATE PRN IV 12/01/17 08:15 12/01/17 12:00 (Brethine Inj) 1 mg UNSCH PRN SQ 12/01/17 08:15 Vasopressin 40 units/Dextrose 100 ml @ 6 mls/hr [id number] IV 12/01/17 15:39 12/02/17 08:27 (Ddavp Inj) 2 mcg Q6HR PRN IV PUSH 12/01/17 15:45 12/01/17 16:54 Dextrose 1,000 ml @ 500 mls/hr Q2H IV 12/01/17 15:45 12/02/17 08:27 . Family History Both parents are alive and well. . Substance Use Tobacco: Never a smoker. Alcohol: Heavy alcohol use. Prescription med abuse: History of narcotic pain medication abuse. Illicits: Methamphetamines, marijuana, cocaine in the past. . Psychosocial History He was born in [place] and left high school when he was a senior. 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 He has 3 children, a 16 -year-old daughter from his first marriage and 2 children with his current significant other, 8 and 7 years old. . Spiritual/Cultural Factors Not an important concept of the patient . Living Will: Never completed Health Care Surrogate: Never completed Durable Power of Rehab Consultant: Never completed Health Care Surrogate(s): Never completed. . Documented care wishes: No documented care wishes. . Today's verbally stated goals: Family is aware of the likelihood of brain and accepts that diagnosis. . Family/friends goals: Comfort oriented at this point. . Ethical and Legal Issues None noted. . Physical Exam Vital Signs Date Time Temp Pulse Resp B/P (MAP) Pulse Ox O2 Delivery O2 Flow Rate FiO2 12/02/17 12:00 100 12/02/17 12:00 70 12/02/17 12:00 98.6 96 12 122/76 (91) 100 12/02/17 11:55 100 70 12/02/17 10:45 95 100 12/02/17 10:00 101 12/02/17 08:27 103 118/73 12/02/17 08:00 98.8 98 22 114/66 (82) 92 12/02/17 08:00 80 12/02/17 08:00 103 12/02/17 07:32 92 80 12/02/17 07:32 91 80 12/02/17 07:15 92 Mechanical Ventilator 75 12/02/17 07:00 88 Mechanical Ventilator 40 12/02/17 06:00 96 12/02/17 04:00 93 12/02/17 04:00 97.5 93 22 119/70 (86) 100 12/02/17 04:00 40 12/02/17 02:46 100 40 12/02/17 02:00 93 12/02/17 00:00 97.3 94 22 126/74 (91) 100 12/02/17 00:00 94 12/02/17 00:00 40 12/01/17 23:47 100 40 12/01/17 22:00 96 12/01/17 21:56 100 40 12/01/17 20:00 40 12/01/17 20:00 97 12/01/17 20:00 98.4 96 22 137/88 (104) 100 12/01/17 19:00 100 Mechanical Ventilator 40 12/01/17 18:00 94 12/01/17 17:06 92 130/75 12/01/17 16:44 100 40 12/01/17 16:40 100 40 12/01/17 16:00 98.4 88 22 126/78 (94) 100 12/01/17 16:00 90 12/01/17 16:00 40 12/01/17 14:12 100 40 . 12/02/17 12/03/17 19:00 07:00 Intake Total 2205 ml Balance 2205 ml Intake IV Total 2205 ml . Exam CONSTITUTIONAL/GENERAL: This is an adequately nourished patient, in no apparent distress. TUBES/LINES/DRAINS: Left IJ central line. SKIN: No jaundice, rashes, or lesions. No wounds seen anteriorly. Skin temperature appropriate. Not diaphoretic. HEAD: Atraumatic. Normocephalic. Ventriculostomy drain to the right cranium. EYES: Pupils fixed, 4 mm unreactive ENT: Nose without bleeding or purulent drainage. NECK: Trachea midline. Orally intubated. CARDIOVASCULAR: Regular rate and rhythm without murmurs, gallops, or rubs. No JVD. Peripheral pulses symmetric. RESPIRATORY/CHEST: Symmetric, unlabored respirations. Clear to auscultation. Breath sounds equal bilaterally. GASTROINTESTINAL: Abdomen soft, hypoactive bowel sounds. GENITOURINARY: Without palpable bladder distension. Stuart catheter in place. MUSCULOSKELETAL: Extremities without clubbing, cyanosis, or edema. No mottling or clubbing. NEUROLOGICAL: Absent gag, corneal and cough. Pending apnea test to determine brain . PSYCHIATRIC: Comatose. . Diagnostic Tests Laboratory Laboratory Tests Test 11/30/17 04:41 11/30/17 04:44 11/30/17 04:47 11/30/17 05:20 Prothrombin Time 10.7 SEC (9.8-11.6) Prothromb Time International Ratio 1.1 RATIO Activated Partial Thromboplast Time 24.2 SEC (24.3-30.1) Fibrinogen 368 mg/dL (227-377) Random Cortisol 11.4 MCG/DL Salicylates Level LESS THAN 1.7 MG/DL White Blood Count 13.0 TH/MM3 (4.0-11.0) Red Blood Count 5.00 MIL/MM3 (4.50-5.90) Hemoglobin 15.1 GM/DL (13.0-17.0) Hematocrit 44.1 % (39.0-51.0) Mean Corpuscular Volume 88.3 FL (80.0-100.0) Mean Corpuscular Hemoglobin 30.3 PG (27.0-34.0) Mean Corpuscular Hemoglobin Concent 34.3 % (32.0-36.0) Red Cell Distribution Width 13.7 % (11.6-17.2) Platelet Count 220 TH/MM3 (150-450) Mean Platelet Volume 9.4 FL (7.0-11.0) Neutrophils (%) (Auto) 85.8 % (16.0-70.0) Lymphocytes (%) (Auto) 9.1 % (9.0-44.0) Monocytes (%) (Auto) 4.8 % (0.0-8.0) Eosinophils (%) (Auto) 0.1 % (0.0-4.0) Basophils (%) (Auto) 0.2 % (0.0-2.0) Neutrophils # (Auto) 11.2 TH/MM3 (1.8-7.7) Lymphocytes # (Auto) 1.2 TH/MM3 (1.0-4.8) Monocytes # (Auto) 0.6 TH/MM3 (0-0.9) Eosinophils # (Auto) 0.0 TH/MM3 (0-0.4) Basophils # (Auto) 0.0 TH/MM3 (0-0.2) CBC Comment DIFF FINAL Differential Comment Blood Urea Nitrogen 22 MG/DL (7-18) Creatinine 1.82 MG/DL (0.60-1.30) Random Glucose 173 MG/DL (74-106) Total Protein 8.0 GM/DL (6.4-8.2) Albumin 4.1 GM/DL (3.4-5.0) Calcium Level 8.5 MG/DL (8.5-10.1) Phosphorus Level 1.7 MG/DL (2.5-4.9) Magnesium Level 2.1 MG/DL (1.5-2.5) Alkaline Phosphatase 67 U/L (45-117) Aspartate Amino Transf (AST/SGOT) 26 U/L (15-37) Alanine Aminotransferase (ALT/SGPT) 19 U/L (12-78) Total Bilirubin 0.8 MG/DL (0.2-1.0) Sodium Level 137 MEQ/L (136-145) Potassium Level 3.2 MEQ/L (3.5-5.1) Chloride Level 99 MEQ/L (98-107) Carbon Dioxide Level 32.3 MEQ/L (21.0-32.0) Anion Gap 6 MEQ/L (5-15) Estimat Glomerular Filtration Rate 40 ML/MIN (>89) Serum Osmolality 301 MOSM/KG (275-295) Total Creatine Kinase 330 U/L (39-308) Creatine Kinase MB 4.4 NG/ML (0.5-3.6) Creatine Kinase MB % 1.3 % (0.0-4.0) Troponin I 0.03 NG/ML (0.02-0.05) Thyroid Stimulating Hormone 3rd Gen 0.723 uIU/ML (0.358-3.740) Acetaminophen Level LESS THAN 2.0 MCG/ML Ethyl Alcohol Level LESS THAN 3 MG/DL (0-5) B-Hydroxybutyrate 0.09 MMOL/L (0.00-0.39) Blood Gas Puncture Site RT RADIAL Blood Gas Patient Temperature 98.6 Blood Gas HCO3 32 mmol/L (22-26) Blood Gas Base Excess 7.9 mmol/L (-2-2) Blood Gas Oxygen Saturation 98 % (90-100) Arterial Blood pH 7.49 (7.380-7.420) Arterial Blood Partial Pressure CO2 42 mmHg (38-42) Arterial Blood Partial Pressure O2 530 mmHg (61-120) Arterial Blood Oxygen Content 22.0 Vol % (12.0-20.0) Arterial Blood Carboxyhemoglobin 0.0 % (0-4) Arterial Blood Methemoglobin 0.9 % (0-2) Blood Gas Hemoglobin 15.0 G/DL (12.0-16.0) Oxygen Delivery Device VENT Blood Gas Ventilator Setting SEE COMMENTS Blood Gas Inspired Oxygen 100 % Test 11/30/17 06:11 11/30/17 12:00 11/30/17 18:30 12/01/17 05:25 Nasal Screen MRSA (PCR) MRSA NOT DETECTED (NOT Blood Urea Nitrogen 24 MG/DL (7-18) 24 MG/DL (7-18) Creatinine 1.76 MG/DL (0.60-1.30) 1.94 MG/DL (0.60-1.30) Random Glucose 105 MG/DL (74-106) 140 MG/DL (74-106) Total Protein 6.9 GM/DL (6.4-8.2) 6.5 GM/DL (6.4-8.2) Albumin 3.7 GM/DL (3.4-5.0) 3.1 GM/DL (3.4-5.0) Calcium Level 8.3 MG/DL (8.5-10.1) 8.0 MG/DL (8.5-10.1) Alkaline Phosphatase 58 U/L (45-117) 57 U/L (45-117) Aspartate Amino Transf (AST/SGOT) 28 U/L (15-37) 22 U/L (15-37) Alanine Aminotransferase (ALT/SGPT) 17 U/L (12-78) 14 U/L (12-78) Total Bilirubin 0.6 MG/DL (0.2-1.0) 0.8 MG/DL (0.2-1.0) Sodium Level 141 MEQ/L (136-145) 144 MEQ/L (136-145) 146 MEQ/L (136-145) Potassium Level 3.2 MEQ/L (3.5-5.1) 3.3 MEQ/L (3.5-5.1) Chloride Level 101 MEQ/L (98-107) 112 MEQ/L (98-107) Carbon Dioxide Level 30.3 MEQ/L (21.0-32.0) 25.4 MEQ/L (21.0-32.0) Anion Gap 10 MEQ/L (5-15) 9 MEQ/L (5-15) Estimat Glomerular Filtration Rate 42 ML/MIN (>89) 37 ML/MIN (>89) Serum Osmolality 304 MOSM/KG (275-295) 309 MOSM/KG (275-295) 313 MOSM/KG (275-295) White Blood Count 13.2 TH/MM3 (4.0-11.0) Red Blood Count 4.32 MIL/MM3 (4.50-5.90) Hemoglobin 12.9 GM/DL (13.0-17.0) Hematocrit 38.6 % (39.0-51.0) Mean Corpuscular Volume 89.2 FL (80.0-100.0) Mean Corpuscular Hemoglobin 29.7 PG (27.0-34.0) Mean Corpuscular Hemoglobin Concent 33.3 % (32.0-36.0) Red Cell Distribution Width 14.5 % (11.6-17.2) Platelet Count 183 TH/MM3 (150-450) Mean Platelet Volume 8.6 FL (7.0-11.0) Neutrophils (%) (Auto) 83.3 % (16.0-70.0) Lymphocytes (%) (Auto) 8.0 % (9.0-44.0) Monocytes (%) (Auto) 7.7 % (0.0-8.0) Eosinophils (%) (Auto) 0.6 % (0.0-4.0) Basophils (%) (Auto) 0.4 % (0.0-2.0) Neutrophils # (Auto) 11.0 TH/MM3 (1.8-7.7) Lymphocytes # (Auto) 1.1 TH/MM3 (1.0-4.8) Monocytes # (Auto) 1.0 TH/MM3 (0-0.9) Eosinophils # (Auto) 0.1 TH/MM3 (0-0.4) Basophils # (Auto) 0.1 TH/MM3 (0-0.2) CBC Comment DIFF FINAL Differential Comment Prothrombin Time 11.0 SEC (9.8-11.6) Prothromb Time International Ratio 1.1 RATIO Activated Partial Thromboplast Time 26.1 SEC (24.3-30.1) Phosphorus Level 1.7 MG/DL (2.5-4.9) Magnesium Level 2.3 MG/DL (1.5-2.5) Lactic Acid Level 2.2 mmol/L (0.4-2.0) Test 12/01/17 08:33 12/01/17 09:32 12/01/17 10:54 12/01/17 11:37 Urine Specific [place] 1.004 (1.002-1.035) Urine Opiates Screen NEG (NEG) Urine Barbiturates Screen NEG (NEG) Urine Amphetamines Screen POS (NEG) Urine Benzodiazepines Screen NEG (NEG) Urine Cocaine Screen NEG (NEG) Urine Cannabinoids Screen NEG (NEG) Hepatitis A IgM Antibody NEGATIVE (NEGATIVE) Hepatitis B Surface Antigen NEGATIVE (NEGATIVE) Hepatitis B Core IgM Antibody NEGATIVE (NEGATIVE) Hepatitis C Antibody NEGATIVE (NEGATIVE) HIV (1&2) Antibody NEGATIVE (NEGATIVE) Blood Gas Puncture Site ART LINE Blood Gas Patient Temperature 98.6 Blood Gas HCO3 20 mmol/L (22-26) Blood Gas Base Excess -3.5 mmol/L (-2-2) Blood Gas Oxygen Saturation 97 % (90-100) Arterial Blood pH 7.46 (7.380-7.420) Arterial Blood Partial Pressure CO2 28 mmHg (38-42) Arterial Blood Partial Pressure O2 229 mmHg (61-120) Arterial Blood Oxygen Content 18.5 Vol % (12.0-20.0) Arterial Blood Carboxyhemoglobin 0.8 % (0-4) Arterial Blood Methemoglobin 1.2 % (0-2) Blood Gas Hemoglobin 13.2 G/DL (12.0-16.0) Oxygen Delivery Device VENTILATOR Blood Gas Ventilator Setting Blood Gas Inspired Oxygen 40 % Sodium Level 159 MEQ/L (136-145) Serum Osmolality 333 MOSM/KG (275-295) Test 12/01/17 16:41 12/01/17 16:58 12/01/17 18:00 12/01/17 23:20 Sodium Level 161 MEQ/L (136-145) 158 MEQ/L (136-145) 152 MEQ/L (136-145) Blood Gas Puncture Site ART LINE Blood Gas Patient Temperature 98.6 Blood Gas HCO3 20 mmol/L (22-26) Blood Gas Base Excess -4.0 mmol/L (-2-2) Blood Gas Oxygen Saturation 97 % (90-100) Arterial Blood pH 7.39 (7.380-7.420) Arterial Blood Partial Pressure CO2 34 mmHg (38-42) Arterial Blood Partial Pressure O2 215 mmHg (61-120) Arterial Blood Oxygen Content 16.8 Vol % (12.0-20.0) Arterial Blood Carboxyhemoglobin 0.9 % (0-4) Arterial Blood Methemoglobin 1.2 % (0-2) Blood Gas Hemoglobin 11.9 G/DL (12.0-16.0) Oxygen Delivery Device VENTILATOR Blood Gas Ventilator Setting PRVC/22/500/+5/IT0.9 Blood Gas Inspired Oxygen 40 % Test 12/02/17 04:15 12/02/17 04:23 12/02/17 08:39 12/02/17 10:15 Blood Urea Nitrogen 19 MG/DL (7-18) Creatinine 1.84 MG/DL (0.60-1.30) Random Glucose 174 MG/DL (74-106) Total Protein 5.5 GM/DL (6.4-8.2) Albumin 2.4 GM/DL (3.4-5.0) Calcium Level 6.7 MG/DL (8.5-10.1) Alkaline Phosphatase 44 U/L (45-117) Aspartate Amino Transf (AST/SGOT) 13 U/L (15-37) Alanine Aminotransferase (ALT/SGPT) 12 U/L (12-78) Total Bilirubin 0.6 MG/DL (0.2-1.0) Sodium Level 145 MEQ/L (136-145) 140 MEQ/L (136-145) Potassium Level 3.4 MEQ/L (3.5-5.1) Chloride Level 115 MEQ/L (98-107) Carbon Dioxide Level 21.5 MEQ/L (21.0-32.0) Anion Gap 9 MEQ/L (5-15) Estimat Glomerular Filtration Rate 40 ML/MIN (>89) Protein Corrected Calcium 7.5 MG/DL (8.5-10.1) Blood Gas Puncture Site ART LINE ART LINE Blood Gas Patient Temperature 98.6 98.6 Blood Gas HCO3 19 mmol/L (22-26) 19 mmol/L (22-26) Blood Gas Base Excess -5.4 mmol/L (-2-2) -6.3 mmol/L (-2-2) Blood Gas Oxygen Saturation 93 % (90-100) 94 % (90-100) Arterial Blood pH 7.34 (7.380-7.420) 7.29 (7.380-7.420) Arterial Blood Partial Pressure CO2 37 mmHg (38-42) 41 mmHg (38-42) Arterial Blood Partial Pressure O2 80 mmHg (61-120) 86 mmHg (61-120) Arterial Blood Oxygen Content 14.8 Vol % (12.0-20.0) 14.0 Vol % (12.0-20.0) Arterial Blood Carboxyhemoglobin 0.8 % (0-4) 0.7 % (0-4) Arterial Blood Methemoglobin 1.3 % (0-2) 1.2 % (0-2) Blood Gas Hemoglobin 11.3 G/DL (12.0-16.0) 10.5 G/DL (12.0-16.0) Oxygen Delivery Device VENT VENTILATOR Blood Gas Ventilator Setting SEE COMMENTS PRVC/AC Blood Gas Inspired Oxygen 80 % Test 12/02/17 10:59 12/02/17 11:46 Blood Gas Puncture Site ART LINE ART LINE Blood Gas Patient Temperature 98.6 98.6 Blood Gas HCO3 22 mmol/L (22-26) 17 mmol/L (22-26) Blood Gas Base Excess -7.4 mmol/L (-2-2) -7.6 mmol/L (-2-2) Blood Gas Oxygen Saturation 81 % (90-100) 97 % (90-100) Arterial Blood pH 7.06 (7.380-7.420) 7.33 (7.380-7.420) Arterial Blood Partial Pressure CO2 82 mmHg (38-42) 34 mmHg (38-42) Arterial Blood Partial Pressure O2 66 mmHg (61-120) 156 mmHg (61-120) Arterial Blood Oxygen Content 12.9 Vol % (12.0-20.0) 13.8 Vol % (12.0-20.0) Arterial Blood Carboxyhemoglobin 0.3 % (0-4) 0.7 % (0-4) Arterial Blood Methemoglobin 1.2 % (0-2) 1.4 % (0-2) Blood Gas Hemoglobin 11.3 G/DL (12.0-16.0) 9.9 G/DL (12.0-16.0) Oxygen Delivery Device VENTILATOR VENTILATOR Blood Gas Ventilator Setting PEEP10 APRV Blood Gas Inspired Oxygen 100 % 70 % . Result Diagram: 12/01/17 0525 12/02/17 0839 Imaging Last Impressions Chest X-Ray 12/01/17 0000 Signed Impressions: Service Date/Time: Friday, December 01, 2017 04:32 - CONCLUSION: Stable chest x-ray without an acute cardiopulmonary abnormality identified. Isiah Andre MD Head CT 11/30/17 0000 Signed Impressions: Service Date/Time: Thursday, November 30, 2017 04:14 - CONCLUSION: There are acute blood products within the right basal ganglia and brainstem with extension of the blood products into the lateral ventricles and fourth ventricle. These findings result in ventriculomegaly with 4 mm of [id number] midline shift. Isiah Andre MD . Procedures Left IJ central line 11/30/17 Intubation at 11/30/17 . Patient/Family Conference Present at Family Conference: Spoke with patient's father and stepmother, significant other, Nakita, brother Gordo and cousin, Vernon and medical student, Delphine Patel regarding patient's injury, clinical data, prognosis and continued clinical investigations. Pending apnea test to determine brain . Discussed possibility of brain flow study if brain was not a certainty from the apnea test. We also discussed the possibility that if brain were not a certainty withdrawal of life support would be an option patient's family could consider so family discussion could be held prior to the need to make that decision. Palliative care contact information was provided to the family members. Family remained in the room after the conference to continue the discussion. At this time it is noticed that patient is on the organ donor registry and translate is following. . Family Conference Time (mins): 40 Family Conference Location: Consult Room Issues Discussed: * Palliative care role, purpose, approach * Additional medical, psychosocial, and spiritual history * Patients general health, functional status, and cognitive changes in the months leading up to the current hospitalization * Patient/family understanding of the current medical problems * Patient/family understanding of prognosis * Patients goals of care as best understood from advance directives and/or conversations and/or values * Current medical treatment options and benefits/burdens of those options * Likely scenarios comparing ongoing aggressive care with a transition to comfort measures only * Questions answered to the best of my ability * Palliative care contact information provided Assessment and Plan Disease Oriented Problem List: (1) 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 He has 3 children, a 16-year-old daughter from his first marriage and 2 children with his current significant other, 8 and 7 years old. Spiritual: Not an important concept of the patient. Legal: No legal issues noted. Ethical issues impacting care: No ethical issues noted. . Important Contacts Father: Marcelino Cast,Sr. Significant other: Nakita Brother: Gordo Cast Cousin: Vernon . Prognosis His prognosis is very poor. He has a very large cerebral bleed and decreasing reflexes. He is pending test for apnea to determine brain . . Code Status: Full Code Plan PLAN: Legal decision maker: Per [place] statutes, as he is not legally and his children are my nurse, his father would be the legal decision maker, Marcelino Cast, Sr. Goals: To be determined CODE STATUS: Full code SYMPTOMS: * Encephalopathy: Comatose, possibly brain . Pending apnea test. Communication with family regarding possible outcomes and potential decisions. * Dyspnea: Mechanically ventilated for airway protection. Pending apnea test. SUMMARY 47-year-old male who suffered a spontaneous cerebral hemorrhage, with likely brain , pending apnea study.. Patient had placed himself on the organ donor registry and [facility] is following. Palliative care will continue to follow the patient during hospital course as condition evolves, to assist patient/decision-maker with understanding of their medical conditions, weighing benefits/burdens of treatment options, for clarification of goals of treatment. Additionally will assist with any symptoms of palliative concern. . Time Spent Time Periods: 10: 00-10: 40 Total Floor Time (mins): 75 Face to Face Time (mins): 40 >50% Counseling/Coord of Care: Yes Thank you for the opportunity to participate in the care of Mr. Cast. Attestation To help prompt me to consider important information that might be impacting today's encounter and assessment, information from prior notes written by myself or my colleagues may have been "brought forward" into today's note. My signature on this note, however, is an attestation that I personally performed the exam, history, and/or decision-making noted today, and, unless otherwise indicated, the interactions with patient, family, and staff as well as the review of records all occurred today. I also attest that the listed assessment and stated plan reflect my best clinical judgment today based on the combination of historical information, prior notes, and today's exam/ interactions. When time spent is documented, it refers only to time spent today by the signer, or if indicated, combined time spent today by collaborating physician/nurse practitioner. . Patricia Wesley Dec 02, 2017 14:41
--- NOTE | 2017-12-02 14:42 | RADRPT ---
EXAM DATE/TIME: 12/02/2017 14:12 [facility] COMPARISON: No previous studies available for comparison. INDICATIONS : Organ donor. IV CONTRAST: 50 cc Visipaque (iodixanol) IV ORAL CONTRAST: No oral contrast ingested. RADIATION DOSE: 13.58 CTDIvol (mGy) ; Combined studies - Thorax/Abdomen/Pelvis MEDICAL HISTORY : Hypertension. SURGICAL HISTORY : Hernia repair. ENCOUNTER: Initial ACUITY: 1 day PAIN SCALE: Non-responsive LOCATION: Bilateral upper quadrant TECHNIQUE: Volumetric scanning of the abdomen and pelvis was performed. Using automated exposure control and ad justment of the mA and/or kV according to patient size, radiation dose was kept as low as reasonably achievable to obtain optimal diagnostic quality images. DICOM format image data is available electro nically for review and comparison. FINDINGS: LOWER LUNGS: There is prominent parenchymal consolidation especially in the right lower lung. There is some patchy parenchymal infiltrates in the left lung base. LIVER: Mildly heterogeneous density without lesion. There is no dilation of the biliary tree. No calcified gallstones. There is some nonspecific periportal edema. There is a small amount of nonspecific fluid around the gallbladder. SPLEEN: Normal size without lesion. PANCREAS: Within normal limits. KIDNEYS: Normal in size and shape. There is no mass, stone, or hydronephrosis. ADRENAL GLANDS: Within normal limits. VASCULAR: There is no aortic aneurysm. BOWEL/MESENTERY: The stomach, small bowel, and colon demonstrate no acute abnormality. There is no free intraperitone al air. No inflammatory changes. There is a trace of fluid in the pelvis. ABDOMINAL WALL: Within normal limits. RETROPERITONEUM: There is no lymphadenopathy. BLADDER: Stuart catheter in the urinary bladder. There is diffuse thickening involving the wall of the urinary bladder. REPRODUCTIVE: Within normal limits. INGUINAL: There is no lymphadenopathy or hernia. MUSCULOSKELETAL: Within normal limits for patient age. Mild degenerative changes. POST CONTRAST: No abnormal areas of enhancement are seen. CONCLUSION: 1. Prominent abnormal parenchymal consolidation involving the right lower lung. An inflammatory proce ss versus neoplastic disease are the primary considerations. 2. Patchy infiltrate left lower lung suggestive of an inflammatory process such as pneumonia. 3. Nonspecific periportal edema. Nonspecific small amount of fluid around the gallbladder. 4. Trace of fluid deep in the pelvis. 5. Diffuse abnormal thickening of the urinary bladder wall. 6. Mild heterogeneous liver parenchyma. Jake Ruffin MD on December 02, 2017 at 14:35 Board Certified Radiologist. This report was verified electronically.
--- NOTE | 2017-12-02 15:05 | RADRPT ---
EXAM DATE/TIME: 12/02/2017 14:12 [facility] COMPARISON: CT BRAIN W/O CONTRAST, November 30, 2017, 4:14. INDICATIONS : Organ donor. IV CONTRAST: 50 cc Visipaque (iodixanol) IV RADIATION DOSE: 13.58 CTDIvol (mGy) ; Combined studies - Thorax/Abdomen/Pelvis MEDICAL HISTORY : Hypertension. SURGICAL HISTORY : Hernia sx. ENCOUNTER: Initial ACUITY: 1 day PAIN SCALE: Non-responsive LOCATION: Bilateral chest TECHNIQUE: Volumetric scanning of the chest was performed. Using automated exposure control and adjustment of t he mA and/or kV according to patient size, radiation dose was kept as low as reasonably achievable to obtain optimal diagnostic quality images. DICOM format image data is available electronically for r eview and comparison. Follow-up recommendations for detected pulmonary nodules are based at a minimum on nodule size and pa tient risk factors according to Fleischner Society Guidelines. FINDINGS: LUNGS: There is masslike parenchymal consolidation involving the posterior right lower lung. The area of par enchymal consolidation measures least 8 cm x 4.5 cm. No significant pleural effusion is demonstrated. There is a mild patchy infiltrate in the posterior left lower lung. The upper lung cline are clear bilaterally. There is no evidence of pneumothorax. PLEURA: There is no pleural thickening or pleural effusion. MEDIASTINUM: The heart and great vessels demonstrate no acute abnormality. There is no mediastinal or hilar lymph adenopathy. There is an endotracheal tube and NG tube in place. The heart size is mildly prominent. AXILLAE: Within normal limits. No lymphadenopathy. MUSCULOSKELETAL: Within normal limits for patient age. MISCELLANEOUS: The visualized upper abdominal organs demonstrate no acute abnormality. POST CONTRAST: No abnormal areas of enhancement are seen. CONCLUSION: 1. Masslike area of prominent parenchymal consolidation involving the right lower lung. Prominent inf lammatory process versus neoplastic disease would be the primary considerations. 2. Patchy infiltrate in the left lower lung characteristic of a inflammatory process such as pneumoni a. 3. Compensated cardiomegaly. Jake Ruffin MD on December 02, 2017 at 14:59 Board Certified Radiologist. This report was verified electronically.
--- NOTE | 2017-12-04 10:39 | HHI.DS ---
Discharge Summary Admission Date Nov 30, 2017 at 02:59 Discharge Date: Dec 02, 2017 Admitting Diagnosis Acute respiratory failure Right intraparenchymal/intraventricular hemorrhage (1) Intraparenchymal hemorrhage of brain ICD Code: I61.9 - Nontraumatic intracerebral hemorrhage, unspecified Diagnosis: Principal (2) Respiratory failure with hypoxia and hypercapnia ICD Code: J96.91 - Respiratory failure, unspecified with hypoxia; J96.92 - Respiratory failure, unspecified with hypercapnia Diagnosis: Principal (3) Hypertensive emergency ICD Code: I16.1 - Hypertensive emergency Diagnosis: Principal (4) Amphetamine abuse ICD Code: F15.10 - Other stimulant abuse, uncomplicated Diagnosis: Principal (5) Leukocytosis ICD Code: D72.829 - Elevated white blood cell count, unspecified Diagnosis: Secondary (6) Brain ICD Code: G93.82 - Brain Diagnosis: Secondary Procedures ICP monitoring bolt. Intubation and mechanical ventilation. Insertion arterial line Insertion central line Apnea test Brief History This is a 47-year-old male. Date of admission 11/30/2017. Past medical history includes hypertension methamphetamine use. Patient was in his normal himself when he took a shower today was found by his girlfriend unresponsive. He has been using methamphetamine for the past 6 months. Unknown reasons. Urine tox screen positive. Patient presented to for [facility] in [place] as a stroke alert. Due to altered mental status patient was intubated using 20 g etomidate 100 mg succinylcholine. Received [address] brain revealed intra-pedicle hemorrhage 4.7 x 2.2 cm in the right thalamus, midbrain and vicky with intraventricular extension to the third, fourth and lateral ventricles. Patient received mannitol at the facility. Blood pressure was elevated and was treated with labetalol and propofol drip. Neurosurgery was contacted our facility wished for us to accept consultation. CT brain currently pending. 3% saline, mannitol and levetiracetam involvement provided at this facility. Neurological patient's pupils are 9 mm left 8 mm on the right sluggish. Patient extends right upper extremity, flexes left upper extremity, upward toes/ withdraws bilateral lower extremities. Positive gag and cough. Positive corneal reflex. CBC/BMP: 12/01/17 0525 12/02/17 0839 Significant Findings Laboratory Tests Test 12/01/17 10:54 12/01/17 11:37 12/01/17 16:41 12/01/17 16:58 Blood Gas HCO3 20 mmol/L (22-26) 20 mmol/L (22-26) Blood Gas Base Excess -3.5 mmol/L (-2-2) -4.0 mmol/L (-2-2) Arterial Blood pH 7.46 (7.380-7.420) Arterial Blood Partial Pressure CO2 28 mmHg (38-42) 34 mmHg (38-42) Arterial Blood Partial Pressure O2 229 mmHg (61-120) 215 mmHg (61-120) Sodium Level 159 MEQ/L (136-145) 161 MEQ/L (136-145) Serum Osmolality 333 MOSM/KG (275-295) Blood Gas Hemoglobin 11.9 G/DL (12.0-16.0) Test 12/01/17 18:00 12/01/17 23:20 12/02/17 04:15 12/02/17 04:23 Sodium Level 158 MEQ/L (136-145) 152 MEQ/L (136-145) Blood Urea Nitrogen 19 MG/DL (7-18) Creatinine 1.84 MG/DL (0.60-1.30) Random Glucose 174 MG/DL (74-106) Total Protein 5.5 GM/DL (6.4-8.2) Albumin 2.4 GM/DL (3.4-5.0) Calcium Level 6.7 MG/DL (8.5-10.1) Alkaline Phosphatase 44 U/L (45-117) Aspartate Amino Transf (AST/SGOT) 13 U/L (15-37) Potassium Level 3.4 MEQ/L (3.5-5.1) Chloride Level 115 MEQ/L (98-107) Estimat Glomerular Filtration Rate 40 ML/MIN (>89) Protein Corrected Calcium 7.5 MG/DL (8.5-10.1) Blood Gas HCO3 19 mmol/L (22-26) Blood Gas Base Excess -5.4 mmol/L (-2-2) Arterial Blood pH 7.34 (7.380-7.420) Arterial Blood Partial Pressure CO2 37 mmHg (38-42) Blood Gas Hemoglobin 11.3 G/DL (12.0-16.0) Test 12/02/17 08:39 12/02/17 10:15 12/02/17 10:59 12/02/17 11:46 Blood Gas HCO3 19 mmol/L (22-26) 17 mmol/L (22-26) Blood Gas Base Excess -6.3 mmol/L (-2-2) -7.4 mmol/L (-2-2) -7.6 mmol/L (-2-2) Arterial Blood pH 7.29 (7.380-7.420) 7.06 (7.380-7.420) 7.33 (7.380-7.420) Blood Gas Hemoglobin 10.5 G/DL (12.0-16.0) 11.3 G/DL (12.0-16.0) 9.9 G/DL (12.0-16.0) Blood Gas Oxygen Saturation 81 % (90-100) Arterial Blood Partial Pressure CO2 82 mmHg (38-42) 34 mmHg (38-42) Arterial Blood Partial Pressure O2 156 mmHg (61-120) Test 12/02/17 23:14 Blood Gas HCO3 16 mmol/L (22-26) Blood Gas Base Excess -8.9 mmol/L (-2-2) Arterial Blood pH 7.34 (7.380-7.420) Arterial Blood Partial Pressure CO2 30 mmHg (38-42) Arterial Blood Partial Pressure O2 410 mmHg (61-120) Blood Gas Hemoglobin 11.6 G/DL (12.0-16.0) Imaging CT scan head: Large parenchymal hemorrhage PE at Discharge Brain . Transferred to Organ Donor service Transfer Summary Hypertensive brain bleed progressed to brain . Patient was transferred to Organ Donor service. Hospital Course This is a 47-year-old male. Date of admission 11/30/2017. Past medical history includes hypertension methamphetamine use. Patient was in his normal himself when he took a shower today was found by his girlfriend unresponsive. He has been using methamphetamine for the past 6 months. Unknown reasons. Urine tox screen positive. Patient presented to [facility] in [place] as a stroke alert. Due to altered mental status patient was intubated using 20 g etomidate 100 mg succinylcholine. Received [address] brain revealed intra-pedicle hemorrhage 4.7 x 2.2 cm in the right thalamus, midbrain and vicky with intraventricular extension to the third, fourth and lateral ventricles. Patient received mannitol at the facility. Blood pressure was elevated and was treated with labetalol and propofol drip. Neurosurgery was contacted our facility wished for us to accept consultation. CT brain currently pending. 3% saline, mannitol and levetiracetam involvement provided at this facility. Neurological patient's pupils are 9 mm left 8 mm on the right sluggish. Patient extends right upper extremity, flexes left upper extremity, upward toes/withdraws bilateral lower extremities. Positive gag and cough. Positive corneal 12/01: Unresponsive, pupils fixed. Alkalosis, will correct and assess respiratory drive. ICP elevated. Patient has developed DI, will start vasopressin and prn desmopressin. 12/02: No reflexes, no spontaneous respirations during apnea test. pH 7.29 -> 7.055, PCO2 41 -> 82. Has progressed to brain Pt Condition on Discharge: Deteriorating Adolfo Salcedo MD Dec 04, 2017 10:39
== END 2017-12-02 12:12 | disposition expired | DRG 23 ==
LOC: N03A 02:59 → N03B 12-02 13:46 → N03A 12-02 13:46 → UNDODISIN 12-04 14:12
PROVIDERS: ADMIT Internal Medicine Critical Care Medicine; ATTEND Internal Medicine Critical Care Medicine
PROC: 009600Z Drainage of Cerebral Ventricle with Drainage Device, Open Approach (ICD-10-PCS; principal; 2017-11-30)
PROC: 02HV33Z Insertion of Infusion Device into Superior Vena Cava, Percutaneous Approach (ICD-10-PCS; 2017-11-30)
PROC: 5A1945Z Respiratory Ventilation, 24-96 Consecutive Hours (ICD-10-PCS; 2017-11-30)
DX: I61.0 Nontraumatic intracerebral hemorrhage in hemisphere, subcortical (principal); J96.01 Acute respiratory failure with hypoxia; J96.02 Acute respiratory failure with hypercapnia; G93.6 Cerebral edema; G93.40 Encephalopathy, unspecified; E87.3 Alkalosis; E23.2 Diabetes insipidus; G91.1 Obstructive hydrocephalus; I16.1 Hypertensive emergency; I61.5 Nontraumatic intracerebral hemorrhage, intraventricular; I10 Essential (primary) hypertension; F15.10 Other stimulant abuse, uncomplicated; R74.0 Nonspecific elevation of levels of transaminase and lactic acid dehydrogenase [LDH]; D72.829 Elevated white blood cell count, unspecified; E87.6 Hypokalemia; Z91.14 Patient's other noncompliance with medication regimen; R00.0 Tachycardia, unspecified
CPT/HCPCS: 36556; 36600; 36620; 61210; 70450; 71045; 71270; 74178; 76937; 80053; 80074; 80307; 81003; 82010; 82533; 82550; 82552; 82805; 82948; 83605; 83735; 83930; 84100; 84295; 84443; 84484; 85025; 85384; 85610; 85730; 86703; 87641; 93005; 93306; 94002; 94003; 94640; 94664; 94770; 95819; C9113; J1120; J1940; J1953; J2150; J2597; J3010; J3411; J3480; J7030; J7040; J7050; J7070; Q9967